=== PATIENT | female | born 1995 | race Caucasian/White ===

== ENCOUNTER 2019-04-27 16:32 | Inpatient (IN) ==
[2019-04-27] MEDS ORDERED: OXYTOCIN 30 UNITS/500 ML BAG IV PRN ×2 (20:13→20:15)
[2019-04-27 20:34] LABS: Hematocrit (blood only) 40.1 % (37-47); Hemoglobin 13.9 g/dL (12.0-16.0); Mean Corpuscular Volume 87.4 fL (80-100); Mean Platelet Volume 9.6 fL (7.4-10.4); Platelet Count 153 K/uL (130-400); RDW Standard Deviation 41.3 fL (36.4-46.3); Red Blood Count 4.59 M/uL (4.2-5.4); White Blood Count 9.92 K/uL (4.8-10.8)
[2019-04-27 20:46] LABS: Mean Corpuscular Hgb Conc 34.7 g/dL (32-36)
[2019-04-27 20:52] LABS: Alanine Aminotransferase 14 U/L (12-78); Aspartate Aminotransferase 15 U/L (15-37); BUN Creatinine Ratio 12.7 (10-20); Blood Urea Nitrogen 6 mg/dl (7-18); Calcium 9.3 mg/dl (8.5-10.1); Carbon Dioxide 20 mmol/L (21-32); Chloride 109 mmol/L (98-107); Creatinine Clr Calc Pharmacy 195.2 ml/min; Est GFR (African American) > 150.0; Est GFR (Non-African American) 133.6; Glucose 67 mg/dl (70-99); Potassium 3.9 mmol/L (3.5-5.1); Sodium 140 mmol/L (136-145)
[2019-04-27 20:54] LABS: Albumin Globulin Ratio 0.8 (0.9-2); Alkaline Phosphatase 347 U/L (45-117); Bilirubin,Total 0.6 mg/dl (0.2-1); Globulin 3.6 gm/dl (2.5-4.0); Total Protein 6.6 gm/dl (6.4-8.2)
[2019-04-27] MEDS ORDERED: CALCIUM CARBONATE 500 MG CHEWABLE TAB PO PRN (21:12)
--- NOTE | 2019-04-27 22:50 | History & Physical Report ---
Date of Service April 27, 2019 Assessment & Plan (1) 40 weeks gestation of : 24yo @ 40 3 here for IOL. Due to elevated BPs, preeclampsia labs ordered. Patient had elevated protein/creatinine ratio earlier this week; also had urinary tract infection, has been treated with macrobid. Will plan to continue the macrobid during hospital stay. Pagan balloon was inserted without difficulty, inflated to 30ml. Patient's has stated multiple times that he feels that her blood pressure is elevated because she is sitting in L&D bed, and that if she just sits in a chair, then her BP will go down. He insists that she get out of the L&D bed and sit in a chair so her blood pressure will go down. After she does this, her BPs have remained similar to when she was sitting upright in L&D bed. Recommend, because of elevated blood pressures, that patient stay tonight and start induction now. She is willing to spend the night, however during this discussion about staying for induction, patient's interrupted multiple times to state that Vamsi would not be receiving pitocin tonight. I attempted to discuss with patient 3 options for induction: start with pagan alone, vs pagan with low dose pitocin vs pagan with gradually increasing pitocin. Patient's Karlosneil interrupted this conversation, stating that she will not recieve that for induction, and if I recommend this, they will leave and go to another hospital. He does not allow Vamsi to answer questions on her own, and loudly speaks over her and myself during our discussion about the induction process. Because of this disruption causing an inability for Vamsi and me to discuss her induction, I asked him to step out of the room twice. He became increasingly angry, stating "I will not leave. I am the and the father of the baby. I will be part of this and you will not give her pitocin." He stated he has a medical background and understands the induction process, and that Vamsi does not understand this and does not know what is going on. I acknowledged that this process is likely very nervewracking for this family on their first , and that this is probably why Shabbir is very anxious. He and Vamsi agreed with this. Shabbir states that he knows about induction of labor and that if the induction is prolonged, it could cause problems with Vamsi's heart. Therefore, he does not want her to start pitocin tonight. He feels that the less pitocin given during the induction process, the better. I explained that using pitocin in combination with pagan balloon would likely decrease the overall induction of labor time, given that it would likely improve the efficacy of the cervical ripening process. He continued to talk over my attempt at explanation and that he will not allow Vamsi to use pitocin overnight. He stated "I have had problems with you doctors before, and will have to call my mom to come up here to deal with this." He then made a phone call from the room, presumably to his mother, to explain that the doctors wanted to give Vamsi pitocin and start her induction when he did not feel this was appropriate. I recommended to Vamsi that she eat dinner while she considers her options for induction and left the room. Shortly thereafter, I was called back to the room. Shabbir apologized to me for his behavior earlier, stating again that Vamsi does not understand what is going to be happening to her during induction, but that he is trying to protect her from a bad experience because this is only her first baby. He states he is worried that if she has a bad experience, she might not want to have more children. I thanked him for his acknowledgement, and reiterated that I understand that this is a difficult process for families - induction of labor, being told that the BPs are elevated and therefore recommending that she stay overnight rather than discharging home after placement of the cervical pagan. Vamsi stated that she would be willing to continue the pagan balloon overnight, and whenever the balloon falls out she would be willing to start pitocin at that time. I think this is a reasonable compromise, and discussed intermittent monitoring. Whenever the pagan balloon falls out, she is to let us know, and we will start pitocin at that time. Given my interactions with Shabbir this evening, I am concerned about his controlling behavior and the potential for abuse. Vamsi has stated to nursing s taff when alone that she feels safe in her environment. I am unable to question her during this interaction because Shabbir refuses to leave the bedside. Will strongly recommend social worker delinquency prevention consultation after delivery to evaluate for safety in the home for both baby and mother. History of Present Illness Chief Complaint: IOL Primary Care Provider: Yuniel Celaya 24yo @ 40 01/06 presents for IOL. complicated by Rh negative, elev ated blood pressures. Also has UTI - has been treated with macrobid. Patient has history of leukemia (2007). Allergies Allergy/AdvReac Type Severity Reaction Status Date / Time No Known Allergies Allergy Verified 04/25/19 03:45 Home Medications Home Medications Medication Instructions Recorded Confirmed Type vit-iron fum-folic ac 1 tab PO DAILY 04/27/19 04/27/19 History [ Vitamin] ranitidine HCl 150 mg PO DAILY 04/27/19 04/27/19 History Patient History Medical History UTI (urinary tract infection) [place] teeth extracted 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 Pancreatitis D/t chemotherapy Social History Preferred Language: Azeri Communication Ability: Effective Search Engine Optimizer Required: No Beliefs That Will Affect Care: None marital status: Current Living Situation: Spouse Current Living Situation Comment: house Other Information That Helps Us Care for You: No Feels Safe at Home: Yes Safety Concerns: Feels Safe At This Time Smoking Status: Never smoker Hx Alcohol Use: No Hx Substance Use: No Review of Systems All systems reviewed & are unremarkable except as noted in HPI & below Physical Exam Physical Exam: Gen: AAOx3 NAD CV: RRR L: CTAB Abd: soft, gravid, NTTP. EFW 7-8 Ext: no edema SVE: / FHT: Cat 1, reactive NST [place]: no ctx Results & Data Vital Signs (Past 12 Hours) Vital Signs Temp Pulse Resp BP 04/27/19 20:29 36.5 C 88 18 147/89 H 04/27/19 19:37 99 H 164/99 H 04/27/19 18:10 85 18 149/97 H 04/27/19 17:55 94 H 152/96 H 04/27/19 17:40 90 135/99 04/27/19 17:25 98 H 129/94 04/27/19 17:10 96 H 133/91 04/27/19 16:56 99 H 138/96 04/27/19 16:55 97 H 141/96 H 04/27/19 16:45 37.0 C 93 H 18 141/97 H 04/27/19 16:39 93 H 141/97 H
[2019-04-27] MEDS: NITROFURANTOIN MONOHYDRATE 100 MG CAP PO SCH (23:36)
[2019-04-28] MEDS: LACTATED RINGER'S 1,000 ML IV PRN ×5 (02:20→20:52)
[2019-04-28] MEDS ORDERED: BUPIVACAINE 0.25% 30 ML VIAL ONE (02:24)
[2019-04-28] MEDS ORDERED: ePHEDrine sulfate 50 MG/ML AMP ONE (02:25)
[2019-04-28] MEDS ORDERED: fentaNYL citrate 100 MCG/2 ML VIAL ONE (02:25)
[2019-04-28] MEDS ORDERED: fentaNYL 2MCG/ML ROPIV 1.25MG/ML 100 ML BAG EPI ONE (02:26)
--- NOTE | 2019-04-28 05:23 | Anesthesiology Consultation ---
Date of Service April 28, 2019 Assessment & Plan Chart Review Chart Review: Acceptable Risk for Labor Epidural Consults Requested none History Height/Weight Height: 5 ft 7 in Weight: 88.904 kg Allergies Allergy/AdvReac Type Severity Reaction Status Date / Time No Known Allergies Allergy Verified 04/25/19 03:45 Medications Home Medications Medication Instructions Recorded Confirmed Last Taken vit-iron fum-folic ac 1 tab PO DAILY 04/27/19 04/27/19 04/26/19 [ Vitamin] ranitidine HCl 150 mg PO DAILY 04/27/19 04/27/19 04/26/19 Active Medications Generic Name Dose Route Start Last Admin Trade Name Freq PRN Reason Stop Dose Admin Lactated Ringer's 1,000 mls @ 125 mls/hr 04/27/19 20:13 04/28/19 03:21 Lr IV 04/29/19 20:12 125 mls/hr .Q8H PRN Administration L&D Protocol Protocol Oxytocin 30 units in 500 mls @ 1 mls/hr 04/27/19 20:15 04/28/19 03:20 Pitocin IV 04/29/19 20:14 0.06 units/hr .Q24H PRN 1 mls/hr Labor Induction/Augmentation Administration Protocol 0.06 UNITS/HR Nitrofurantoin Macrocrystals 1 mg 04/27/19 23:30 04/27/19 23:36 Macrobid PO 05/27/19 23:29 1 mg BID ANDREW Administration Past Medical History Medical History UTI (urinary tract infection) [place] teeth extracted 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 Pancreatitis D/t chemotherapy Social History Smoking Status: Never smoker Hx Alcohol Use: No Hx Substance Use: No Physical Exam Vital Signs Last Vital Signs Temp 36.5 C 04/28/19 04:47 Pulse 96 H 04/28/19 05:22 Resp 20 04/28/19 04:47 BP 132/82 04/28/19 05:22 Pulse Ox 99 04/28/19 05:19 Testing Laboratory Results 04/27/19 20:20 04/27/19 20:20
[2019-04-28] MEDS ORDERED: ePHEDrine sulfate 50 MG/ML AMP IV PRN ×2 (05:26→21:59)
[2019-04-28] MEDS ORDERED: DiphenhydrAMINE HCL 50 MG/ML VIAL IV PRN ×3 (05:26→21:59)
[2019-04-28] MEDS ORDERED: NALOXONE HCL 1 MG in SODIUM CHLORIDE 0.9% 1000ML 1,000 ML IV PRN ×2 (05:26→21:59)
[2019-04-28] MEDS ORDERED: NALBUPHINE HCL INJ 10 MG/ML AMP IV PRN ×2 (05:26→21:59)
[2019-04-28] MEDS ORDERED: NALOXONE HCL 0.4 MG/1 ML VIAL/CARP IV PRN ×2 (05:26→21:59)
--- NOTE | 2019-04-28 08:54 | Obstetrical Progress Note ---
Date of Service April 28, 2019 Subjective Mai balloon fell out at about 2am. Patient took a shower, then pitocin started. Pit is now at 9. FHT Cat 1 [place] Q 2-4 SVE 5/80/-2 SROM clear fluid during my exam. Discussed with Chika Coronel RN (in front of patient and FOB) during visit to patient's room that we will monitor how contractions respond now that ROM has occurred. Will increase pitocin as appropriate. Results & Data Vital Signs (Past 12 Hours) Vital Signs Temp Pulse Resp BP Pulse Ox 04/28/19 08:44 99 H 98 04/28/19 08:41 93 H 105/64 04/28/19 08:39 93 H 97 04/28/19 08:34 96 H 97 04/28/19 08:30 20 04/28/19 08:29 98 H 97 04/28/19 08:26 96 H 111/73 04/28/19 08:24 97 H 98 04/28/19 08:19 95 H 98 04/28/19 08:14 114 H 100 04/28/19 08:11 107 H 119/81 04/28/19 08:09 100 H 98 04/28/19 08:04 99 H 98 04/28/19 08:00 20 04/28/19 07:59 105 H 99 04/28/19 07:56 100 H 113/71 04/28/19 07:54 97 H 99 04/28/19 07:49 102 H 98 04/28/19 07:44 98 H 98 04/28/19 07:42 100 H 119/75 04/28/19 07:39 102 H 99 04/28/19 07:34 99 H 99 04/28/19 07:30 18 04/28/19 07:29 93 H 99 04/28/19 07:26 90 128/77 04/28/19 07:24 90 98 04/28/19 07:19 90 98 04/28/19 07:14 94 H 99 04/28/19 07:11 89 136/89 04/28/19 07:10 36.9 C 20 04/28/19 07:09 92 H 99 04/28/19 07:04 90 100 04/28/19 06:59 87 99 04/28/19 06:56 97 H 138/94 04/28/19 06:54 89 99 04/28/19 06:49 93 H 99 04/28/19 06:44 91 H 98 04/28/19 06:39 92 H 100 04/28/19 06:34 85 139/94 99 04/28/19 06:29 106 H 98 04/28/19 06:24 108 H 115/66 98 04/28/19 06:19 100 H 98 04/28/19 06:14 99 H 122/70 99 04/28/19 06:09 98 H 98 04/28/19 06:04 106 H 114/68 98 04/28/19 05:59 102 H 100 04/28/19 05:54 102 H 118/72 99 04/28/19 05:49 98 H 98 04/28/19 05:44 96 H 99 04/28/19 05:43 108 H 130/73 04/28/19 05:39 98 H 100 04/28/19 05:35 100 H 127/73 04/28/19 05:34 103 H 100 04/28/19 05:29 95 H 99 04/28/19 05:24 94 H 99 04/28/19 05:22 96 H 132/82 04/28/19 05:20 90 137/81 04/28/19 05:19 94 H 99 04/28/19 05:18 92 H 140/84 04/28/19 05:16 95 H 135/80 04/28/19 05:14 96 H 140/90 99 04/28/19 05:12 97 H 143/90 H 04/28/19 05:10 88 144/88 H 04/28/19 05:09 92 H 99 04/28/19 05:08 99 H 143/89 H 04/28/19 05:06 88 147/97 H 04/28/19 05:04 94 H 170/110 H 99 04/28/19 05:01 92 H 155/105 H 04/28/19 04:59 91 H 99 04/28/19 04:54 111 H 100 04/28/19 04:49 108 H 100 04/28/19 04:47 36.5 C 86 20 159/103 H 04/28/19 04:40 97 H 99 04/28/19 04:35 94 H 98 04/28/19 04:30 99 H 99 04/28/19 04:25 98 H 99 04/28/19 04:20 99 H 99 04/28/19 04:15 91 H 99 04/28/19 04:10 99 H 99 04/28/19 04:05 95 H 99 04/28/19 04:00 97 H 99 04/28/19 03:55 95 H 99 04/28/19 03:50 92 H 99 04/28/19 03:45 91 H 98 04/28/19 03:40 98 H 99 04/28/19 03:35 101 H 99 04/28/19 03:30 94 H 99 04/28/19 03:25 102 H 99 04/28/19 03:24 95 H 151/99 H 04/28/19 03:20 105 H 100 04/28/19 03:15 101 H 99 04/28/19 03:10 101 H 100 04/28/19 03:05 106 H 99 04/28/19 03:00 105 H 100 04/28/19 02:55 96 H 100 04/28/19 01:45 95 H 136/93 04/27/19 23:28 36.5 C 96 H 18 136/92
[2019-04-28] MEDS: NITROFURANTOIN MONOHYDRATE 100 MG CAP PO SCH ×2 (09:10→23:25)
[2019-04-28] MEDS ORDERED: ONDANSETRON INJ 2 MG/ML 2 ML VIAL IV STA (11:47)
[2019-04-28] MEDS: fentaNYL 2MCG/ML ROPIV 1.25MG/ML 100 ML BAG EPI PRN ×2 (13:27→20:33)
[2019-04-28] MEDS ORDERED: CITRIC ACID/SODIUM CITRATE 15 ML UDC ONE (20:44)
[2019-04-28] MEDS ORDERED: LACTATED RINGER'S 1,000 ML IV SCH ×3 (20:45→23:00)
[2019-04-28] MEDS ORDERED: CEFAZOLIN 2000MG 2,000 MG/15 ML SYR IV SCH (21:00)
[2019-04-28] MEDS ORDERED: CITRIC ACID/SODIUM CITRATE 15 ML UDC PO SCH (21:00)
[2019-04-28] MEDS ORDERED: MoRPHine SULFATE PF 1 MG/ML 10 ML AMP/VIAL EPI ONE (21:21)
[2019-04-28] MEDS ORDERED: fentaNYL citrate 100 MCG/2 ML VIAL IV ONE (21:34)
[2019-04-28] MEDS ORDERED: LACTATED RINGER'S 500 ML IV PRN (21:59)
[2019-04-28] MEDS ORDERED: MoRPHine SULFATE 2 MG/ML CARP IV PRN (21:59)
[2019-04-28] MEDS ORDERED: ONDANSETRON INJ 2 MG/ML 2 ML VIAL IV PRN (21:59)
[2019-04-28] MEDS ORDERED: MEPERIDINE HCL 25 MG/ML CARP IV PRN (21:59)
[2019-04-28] MEDS ORDERED: NALOXONE HCL 0.08 MG in SYRINGE 1.8 ML IV PRN (21:59)
[2019-04-28] MEDS ORDERED: KETOROLAC 30 MG/ML VIAL IV PRN (21:59)
[2019-04-28] MEDS ORDERED: HYDROmorphone INJ 0.5 MG/0.5 ML SYR IV PRN (21:59)
[2019-04-28] MEDS ORDERED: PROMETHAZINE HCL 6.25 MG in SODIUM CHLORIDE 0.9% 50 ML IV PRN (21:59)
[2019-04-28] MEDS ORDERED: MoRPHine SULFATE PF 1 MG/ML 10 ML AMP/VIAL INT SPINAL ONE (21:59)
[2019-04-28] MEDS ORDERED: SODIUM CHLORIDE 0.9% 1000ML 1,000 ML IV SCH (22:00)
[2019-04-28] MEDS ORDERED: NO NARCOTICS OR SEDATIVES SCH (22:00)
[2019-04-28] MEDS ORDERED: KETOROLAC 30 MG/ML VIAL IV ONE (22:02)
[2019-04-28] MEDS ORDERED: OXYTOCIN 10 UNITS/ML VIAL IV ONE (22:02)
[2019-04-28] MEDS ORDERED: LIDOCAINE/EPINEPHRINE 2% 1:200,000 20 ML SDV INFIL ONE (22:32)
--- NOTE | 2019-04-28 22:33 | Post Operative Brief Note ---
Immediate Post Op Note v1 Date of Surgery April 28, 2019 Pre & Post Diagnosis Operation Date: 04/28/19 20:30 Pre-Op Diagnosis: Failure to descend Post-Op Diagnosis: Failure to descend Procedure Operation Date: 04/28/19 20:30 Actual Procedures p Section in LD - Padmini Burger MD, FACOG Surgeon Padmini Burger MD, FACOG Ribbon Tier Tereza Hernandez RN Estimated Blood Loss 600 Findings Consistent with Post-Op Diagnosis Drains Mai Catheter
[2019-04-28] MEDS ORDERED: SENNA 8.6 MG TAB PO PRN (22:52)
[2019-04-28] MEDS ORDERED: BENZOCAINE 20% AER SPR 82.5 GM CAN EXT PRN (22:52)
[2019-04-28] MEDS ORDERED: MAGNESIUM HYDROXIDE SUSP 30 ML UDC PO PRN (22:52)
[2019-04-28] MEDS ORDERED: IBUPROFEN 600 MG TAB PO PRN (22:52)
[2019-04-28] MEDS ORDERED: SUPERCREAM 0.870% 15 GM JAR EXT PRN (22:52)
[2019-04-28] MEDS ORDERED: DIPHTHERIA/TETANUS/PERTUSSIS 0.5 ML SYR/VIAL IM ONE (22:52)
[2019-04-28] MEDS ORDERED: HYDROCORTISONE ACETATE 25 MG SUPP PR PRN (22:52)
--- NOTE | 2019-04-28 22:57 | Anesthesiology Progress Note ---
Date of Service April 28, 2019 Anesthesia Post Procedure Vital Signs Vital Signs: Temp Pulse Resp BP Pulse Ox 04/28/19 22:55 101 H 100 04/28/19 22:50 103 H 97/60 L 100 04/28/19 22:41 122 H 99/54 L 04/28/19 22:40 37.1 C 16 04/28/19 21:19 113 H 97 04/28/19 21:14 111 H 97 04/28/19 21:11 109 H 133/79 04/28/19 21:09 112 H 98 04/28/19 21:04 110 H 96 04/28/19 20:59 114 H 98 04/28/19 20:56 129 H 142/85 H 04/28/19 20:54 112 H 98 04/28/19 20:49 115 H 96 04/28/19 20:44 123 H 97 04/28/19 20:41 130 H 131/65 04/28/19 20:39 126 H 95 04/28/19 20:34 139 H 88 L 04/28/19 20:33 139 H 87 L 04/28/19 20:29 142 H 97 04/28/19 20:27 144 H 88 L 04/28/19 20:24 130 H 98 04/28/19 20:22 115 H 87 L 04/28/19 20:19 138 H 98 04/28/19 20:14 174 H 98 04/28/19 20:09 124 H 96 04/28/19 20:04 128 H 98 04/28/19 19:59 122 H 98 04/28/19 19:58 144 H 139/91 04/28/19 19:54 115 H 98 04/28/19 19:49 117 H 95 04/28/19 19:47 37.4 C 22 04/28/19 19:44 113 H 98 04/28/19 19:39 129 H 98 04/28/19 19:34 126 H 98 04/28/19 19:33 126 H 94 04/28/19 19:29 104 H 97 04/28/19 19:26 126 H 130/75 90 04/28/19 19:24 103 H 97 04/28/19 19:19 117 H 95 04/28/19 19:14 112 H 96 04/28/19 19:10 104 H 94 04/28/19 19:09 112 H 95 04/28/19 19:04 108 H 97 04/28/19 18:59 130 H 96 04/28/19 18:56 126 H 126/69 04/28/19 18:54 143 H 99 04/28/19 18:49 109 H 95 04/28/19 18:44 113 H 96 04/28/19 18:41 108 H 134/78 04/28/19 18:39 114 H 96 04/28/19 18:34 115 H 96 04/28/19 18:29 147 H 97 04/28/19 18:27 115 H 139/71 04/28/19 18:24 118 H 95 04/28/19 18:19 119 H 96 04/28/19 18:14 111 H 96 04/28/19 18:09 145 H 94 04/28/19 18:04 118 H 95 04/28/19 18:03 120 H 91 04/28/19 17:59 117 H 96 04/28/19 17:57 37.6 C H 22 04/28/19 17:56 123 H 127/75 04/28/19 17:54 124 H 96 04/28/19 17:49 109 H 97 04/28/19 17:44 124 H 98 04/28/19 17:41 122 H 126/62 04/28/19 17:39 116 H 80 L 04/28/19 17:34 144 H 75 L 04/28/19 17:29 117 H 97 04/28/19 17:26 115 H 130/68 04/28/19 17:24 119 H 98 04/28/19 17:23 118 H 91 04/28/19 17:19 112 H 95 04/28/19 17:18 133 H 93 04/28/19 17:14 112 H 98 04/28/19 17:12 125 H 132/62 04/28/19 17:09 123 H 99 04/28/19 17:04 125 H 97 04/28/19 16:59 126 H 24 97 04/28/19 16:56 122 H 122/68 04/28/19 16:54 122 H 99 04/28/19 16:49 126 H 99 04/28/19 16:44 123 H 97 04/28/19 16:41 120 H 121/73 04/28/19 16:39 124 H 100 06/27/19 16:34 117 H 100 04/28/19 16:29 122 H 100 04/28/19 16:26 118 H 120/58 L 04/28/19 16:24 117 H 100 04/28/19 16:19 118 H 100 04/28/19 16:17 36.6 C 20 04/28/19 16:14 117 H 100 04/28/19 16:09 118 H 100 04/28/19 16:04 109 H 98 04/28/19 15:59 135 H 100 04/28/19 15:56 128 H 130/67 86 L 04/28/19 15:54 126 H 99 04/28/19 15:49 105 H 100 04/28/19 15:44 119 H 99 04/28/19 15:41 141 H 143/63 H 04/28/19 15:39 122 H 80 L 04/28/19 15:38 108 H 88 L 04/28/19 15:34 111 H 89 L 04/28/19 15:29 116 H 97 04/28/19 15:26 113 H 135/88 04/28/19 15:25 106 H 86 L 04/28/19 15:24 107 H 99 04/28/19 15:19 110 H 100 04/28/19 15:14 104 H 99 04/28/19 15:11 104 H 137/93 88 L 04/28/19 15:09 102 H 99 04/28/19 15:04 103 H 100 04/28/19 14:59 102 H 100 04/28/19 14:58 36.9 C 04/28/19 14:57 104 H 145/94 H 04/28/19 14:54 110 H 99 04/28/19 14:49 106 H 100 04/28/19 14:44 104 H 99 04/28/19 14:42 117 H 159/97 H 04/28/19 14:39 102 H 100 04/28/19 14:34 104 H 99 04/28/19 14:30 04/28/19 14:29 108 H 100 04/28/19 14:26 108 H 148/86 H 04/28/19 14:24 107 H 100 04/28/19 14:19 105 H 100 04/28/19 14:14 111 H 99 04/28/19 14:11 94 H 121/75 04/28/19 14:09 93 H 99 04/28/19 14:04 91 H 98 04/28/19 14:00 20 04/28/19 13:59 94 H 98 04/28/19 13:56 89 110/74 04/28/19 13:54 90 98 04/28/19 13:49 91 H 99 04/28/19 13:44 95 H 99 04/28/19 13:41 90 119/73 04/28/19 13:39 100 H 99 04/28/19 13:34 95 H 99 04/28/19 13:30 18 04/28/19 13:29 94 H 99 04/28/19 13:26 97 H 129/74 04/28/19 13:24 98 H 99 04/28/19 13:19 93 H 98 04/28/19 13:14 91 H 98 04/28/19 13:11 96 H 138/88 04/28/19 13:09 110 H 100 04/28/19 13:04 106 H 99 04/28/19 13:00 37.5 C 20 04/28/19 12:59 102 H 97 04/28/19 12:56 100 H 120/62 04/28/19 12:54 102 H 97 04/28/19 12:49 102 H 97 04/28/19 12:44 103 H 96 04/28/19 12:41 98 H 108/57 L 04/28/19 12:39 98 H 97 04/28/19 12:34 100 H 97 04/28/19 12:31 18 04/28/19 12:29 107 H 98 04/28/19 12:27 98 H 108/64 04/28/19 12:24 97 H 97 04/28/19 12:19 102 H 97 04/28/19 12:14 102 H 98 04/28/19 12:12 102 H 120/74 04/28/19 12:09 106 H 99 04/28/19 12:04 108 H 100 04/28/19 12:00 04/28/19 11:59 105 H 100 04/28/19 11:57 107 H 119/75 04/28/19 11:54 108 H 99 04/28/19 11:49 112 H 100 04/28/19 11:44 116 H 98 04/28/19 11:41 108 H 133/82 04/28/19 11:39 107 H 99 04/28/19 11:34 96 H 98 04/28/19 11:30 18 04/28/19 11:29 100 H 99 04/28/19 11:27 96 H 134/83 04/28/19 11:24 98 H 98 04/28/19 11:19 98 H 98 04/28/19 11:14 103 H 99 04/28/19 11:12 103 H 134/89 04/28/19 11:09 102 H 99 04/28/19 11:04 98 H 99 04/28/19 11:00 37.5 C 20 04/28/19 10:59 107 H 99 04/28/19 10:56 104 H 136/80 04/28/19 10:54 98 H 99 04/28/19 10:49 99 H 98 04/28/19 10:44 93 H 96 04/28/19 10:42 90 122/69 04/28/19 10:39 94 H 98 04/28/19 10:34 98 H 98 04/28/19 10:30 20 04/28/19 10:29 98 H 97 04/28/19 10:26 90 119/67 04/28/19 10:24 99 H 97 04/28/19 10:19 92 H 98 04/28/19 10:14 96 H 96 04/28/19 10:12 87 126/64 04/28/19 10:09 93 H 97 04/28/19 10:04 94 H 96 04/28/19 10:00 20 04/28/19 09:59 90 97 04/28/19 09:56 90 126/70 04/28/19 09:54 92 H 97 04/28/19 09:49 93 H 97 04/28/19 09:44 96 H 98 04/28/19 09:41 97 H 131/82 04/28/19 09:39 95 H 98 04/28/19 09:34 94 H 98 04/28/19 09:30 18 04/28/19 09:29 93 H 98 04/28/19 09:26 92 H 127/83 04/28/19 09:24 93 H 98 04/28/19 09:19 89 98 04/28/19 09:14 94 H 98 04/28/19 09:12 98 H 139/86 04/28/19 09:09 104 H 100 04/28/19 09:04 107 H 98 04/28/19 09:00 37.1 C 20 04/28/19 08:59 100 H 98 04/28/19 08:56 96 H 111/66 04/28/19 08:54 97 H 97 04/28/19 08:49 99 H 97 04/28/19 08:44 99 H 98 04/28/19 08:41 93 H 105/64 04/28/19 08:39 93 H 97 04/28/19 08:34 96 H 97 04/28/19 08:30 20 04/28/19 08:29 98 H 97 04/28/19 08:26 96 H 111/73 04/28/19 08:24 97 H 98 04/28/19 08:19 95 H 98 04/28/19 08:14 114 H 100 04/28/19 08:11 107 H 119/81 04/28/19 08:09 100 H 98 04/28/19 08:04 99 H 98 04/28/19 08:00 20 04/28/19 07:59 105 H 99 04/28/19 07:56 100 H 113/71 04/28/19 07:54 97 H 99 04/28/19 07:49 102 H 98 04/28/19 07:44 98 H 98 04/28/19 07:42 100 H 119/75 04/28/19 07:39 102 H 99 04/28/19 07:34 99 H 99 04/28/19 07:30 18 04/28/19 07:29 93 H 99 04/28/19 07:26 90 128/77 04/28/19 07:24 90 98 04/28/19 07:19 90 98 04/28/19 07:14 94 H 99 04/28/19 07:11 89 136/89 04/28/19 07:10 36.9 C 20 04/28/19 07:09 92 H 99 04/28/19 07:04 90 100 04/28/19 06:59 87 99 04/28/19 06:56 97 H 138/94 04/28/19 06:54 89 99 04/28/19 06:49 93 H 99 04/28/19 06:44 91 H 98 04/28/19 06:39 92 H 100 04/28/19 06:34 85 139/94 99 04/28/19 06:29 106 H 98 04/28/19 06:24 108 H 115/66 98 04/28/19 06:19 100 H 98 04/28/19 06:14 99 H 122/70 99 04/28/19 06:09 98 H 98 04/28/19 06:04 106 H 114/68 98 04/28/19 05:59 102 H 100 04/28/19 05:54 102 H 118/72 99 04/28/19 05:49 98 H 98 04/28/19 05:44 96 H 99 04/28/19 05:43 108 H 130/73 04/28/19 05:39 98 H 100 04/28/19 05:35 100 H 127/73 04/28/19 05:34 103 H 100 04/28/19 05:29 95 H 99 04/28/19 05:24 94 H 99 04/28/19 05:22 96 H 132/82 04/28/19 05:20 90 137/81 04/28/19 05:19 94 H 99 04/28/19 05:18 92 H 140/84 04/28/19 05:16 95 H 135/80 04/28/19 05:14 96 H 140/90 99 04/28/19 05:12 97 H 143/90 H 04/28/19 05:10 88 144/88 H 04/28/19 05:09 92 H 99 04/28/19 05:08 99 H 143/89 H 04/28/19 05:06 88 147/97 H 04/28/19 05:04 94 H 170/110 H 99 04/28/19 05:01 92 H 155/105 H 04/28/19 04:59 91 H 99 04/28/19 04:54 111 H 100 04/28/19 04:49 108 H 100 04/28/19 04:47 36.5 C 86 20 159/103 H 04/28/19 04:40 97 H 99 04/28/19 04:35 94 H 98 04/28/19 04:30 99 H 99 04/28/19 04:25 98 H 99 04/28/19 04:20 99 H 99 06/27/19 04:15 91 H 99 04/28/19 04:10 99 H 99 04/28/19 04:05 95 H 99 04/28/19 04:00 97 H 99 04/28/19 03:55 95 H 99 04/28/19 03:50 92 H 99 04/28/19 03:45 91 H 98 04/28/19 03:40 98 H 99 04/28/19 03:35 101 H 99 04/28/19 03:30 94 H 99 04/28/19 03:25 102 H 99 04/28/19 03:24 95 H 151/99 H 04/28/19 03:20 105 H 100 04/28/19 03:15 101 H 99 04/28/19 03:10 101 H 100 04/28/19 03:05 106 H 99 04/28/19 03:00 105 H 100 04/28/19 02:55 96 H 100 04/28/19 01:45 95 H 136/93 04/27/19 23:28 36.5 C 96 H 18 136/92 Transfer of Care Handoff Completed per policy Notes Mental Status: alert / awake / arousable Patient Amnestic to Procedure: Yes Nausea / Vomiting: adequately controlled Pain: adequately controlled Airway Patency, RR, SpO2: stable & adequate BP & HR: stable & adequate Hydration State: stable & adequate Neuraxial Anesthesia: was administered and sensory block is resolving Anesthetic Complications: no major complications apparent and Pt Satisfied with anesthetic care
[2019-04-28] MEDS: OXYTOCIN 20 UNITS in LACTATED RINGER'S 1,000 ML IV SCH (23:29)
--- NOTE | 2019-04-29 01:38 | Operative Report ---
DATE OF OPERATION: 04/28/2019 SURGEON: Padmini Ram MD DOCK LOADER: Tereza Hernandez RN. PREOPERATIVE DIAGNOSES: Intrauterine at 40 and 3/7 weeks with gestational hypertension/mild preeclampsia, failed induction of labor and arrest of descent. POSTOPERATIVE DIAGNOSES: Intrauterine at 40 and 3/7 weeks with gestational hypertension/mild preeclampsia, failed induction of labor and arrest of descent plus delivery of a viable male infant, 9 pounds 8 ounces, direct occiput posterior presentation. PROCEDURE: Primary low transverse section. ANESTHESIA: Epidural. BLOOD LOSS: 600 mL HISTORY: The patient is a 24-year-old G1, P0 white female who presented for induction because of elevated pressures and post-dates. She received a cervical balloon and then Pitocin on the evening of 04/27/2019. By the morning, her cervix was 4 cm dilated. Membranes ruptured spontaneously for clear fluid. An IUPC was placed after forebag of fluid was also ruptured. Pitocin was continued. She progressed to full dilation and despite pushing effectively for over 4 hours, the presenting part did not descend past +2 station. There was significant molding present and because of maternal exhaustion and failure to descend felt prudent to proceed with a low transverse section after much discussion with her and the patient they are agreeable to this plan. GROSS FINDINGS: Uterus is gravid and consistent with a term in size. Bilateral ovaries and fallopian tubes are grossly normal. The infant was in a direct occiput posterior presentation. PROCEDURE: After the patient was prepped and draped in usual sterile fashion, a low transverse skin incision was made with a scalpel and carried to the fascia with the same scalpel. The fascial incision was then extended with James scissors. The edges were grasped with Hakan clamps and underlying rectus muscles bluntly and sharply dissected off the overlying fascia. The underlying peritoneum was elevated and entered sharply. The bladder was then taken down off the anterior surface of the uterus and placed behind the bladder blade. Low uterine segment was entered with the scalpel and extended transversely. The was brought back out of the pelvis to the incision and then with moderate fundal pressure, the infant was delivered. Mouth and nasopharynx were suctioned after delivery. The rest of the delivered with additional fundal pressure. The cord was clamped and cut and the infant was handed off to Dr. Murdock who was in attendance as blow down helper. There was moderate meconium upon entering the uterus. The placenta was then manually extracted and the uterus exteriorized and covered with a clean lap sponge. The uterine cavity was then explored and found to be free of any placental tissue or membranes. There was a small extension of the uterine incision inferiorly on the left. This was repaired along with the rest of the uterine incision in 2 layers in a running locking imbricating fashion with 0 Monocryl. The hemostasis was noted to be excellent on the incision. The posterior cul-de-sac was irrigated with normal saline. The incision was examined once more and continued to have excellent hemostasis. The uterus was placed back inside the abdominal cavity. The gutters were checked for any clot or fluid. The anterior cul-de-sac was then irrigated as well with normal saline. The incision was examined once more and continued to have excellent hemostasis. The rectus muscles were brought together in midline with individual stitches of 0 Monocryl. The fascia was closed in a running fashion with 0 Vicryl. Skin edges were reapproximated using a subcuticular stitch of 4-0 Vicryl after irrigating the adipose layer. Urine was bloody initially during the case, which was expected with manipulation in movement of the head out of the pelvis and into the uterine incision. Urine was clearing at the end of the case. Mother and were doing well in the recovery area. I attest to the content of the Intraoperative Record and any orders documented therein. Any exception s are noted below.
[2019-04-29 06:43] LABS: Basophils # (auto) 0.01 K/uL (0-0.2); Hematocrit (blood only) 31.4 % (37-47); Hemoglobin 10.9 g/dL (12.0-16.0); Immature Granulocytes % (auto) 0.5 %; Lymphocytes # (auto) 1.53 K/uL (1.2-3.4); Lymphocytes % (auto) 7.4 %; Mean Corpuscular Hgb Conc 34.7 g/dL (32-36); Mean Corpuscular Volume 88.7 fL (80-100); Mean Platelet Volume 9.4 fL (7.4-10.4); Monocytes # (auto) 1.56 K/uL (0.11-0.59); Monocytes % (auto) 7.6 %; Neutrophils # (auto) 17.41 K/uL (1.4-6.5); Neutrophils % (auto) 84.5 %; Platelet Count 129 K/uL (130-400); Red Blood Count 3.54 M/uL (4.2-5.4); White Blood Count 20.61 K/uL (4.8-10.8)
--- NOTE | 2019-04-29 07:03 | Obstetrical Progress Note ---
Date of Service <Enmanuel Richards, - Last Filed: 04/29/19 07:03> April 29, 2019 Assessment & Plan <Enmanuel Richards DO - Last Filed: 04/29/19 07:03> (1) Status post section routine follow-up: -vital signs reviewed and WNL -last Hgb 13.9 -Blood type: O-, GBS-, Rubella Nonimmune -pt doing well clinically -encourage ambulation, monitor and control pain with motrin tylenol, advance to regular diet, monitor lochia -cont encourage breast feeding Subjective <Enmanuel Richards DO - Last Filed: 04/29/19 07:03> 24 y/o POD1 found in bed this morning in NAD. Reports no acute overnight events. Pt states that she has no pain other than appropriate soreness. Tolerating PO intake of liquids without N/V. Has not tried ambulating yet. She is breast and bottle feeding without issue. No issues with voiding, no BM yet, pagan in place. No other acute concerns or complaints. Review of Systems All systems reviewed & are unremarkable except as noted in HPI & below Physical Exam <Enmanuel Richards DO - Last Filed: 04/29/19 07:03> Constitutional WD/WN, vitals as above Respiratory normal respiratory effort, lungs clear to auscultation Cardiovascular RRR, no murmur, no edema Gastrointestinal (Abdomen) mild abd tenderness Incision C/D/I, no bandage Skin no rashes, warm and dry Psychiatric A+Ox3, euthymic affect Lymphatic no LE swelling, no calf tenderness Results & Data <Enmanuel Richards, DO - Last Filed: 04/29/19 07:03> Vital Signs (Past 12 Hours) Vital Signs Temp Pulse Pulse Resp BP BP Pulse Ox 04/29/19 06:00 18 99 04/29/19 04:30 36.7 C 82 18 117/72 98 04/29/19 02:30 20 98 04/29/19 02:00 36.7 C 90 18 116/72 98 04/29/19 01:00 36.5 C 89 18 114/70 99 04/29/19 00:43 81 116/63 04/29/19 00:40 36.8 C 81 18 98 04/29/19 00:35 93 H 98 04/29/19 00:30 93 H 97 04/29/19 00:25 87 99 04/29/19 00:20 81 98 04/29/19 00:15 88 99 04/29/19 00:13 80 110/59 L 04/29/19 00:10 86 18 98 04/29/19 00:05 86 98 04/29/19 00:00 83 97 04/28/19 23:55 84 97 04/28/19 23:51 88 93 04/28/19 23:50 89 94 04/28/19 23:45 88 96 04/28/19 23:43 85 104/54 L 04/28/19 23:40 88 18 96 04/28/19 23:36 85 96/62 L 04/28/19 23:35 85 97 04/28/19 23:31 18 04/28/19 23:30 90 96 04/28/19 23:28 96 H 92 04/28/19 23:25 85 99 04/28/19 23:22 83 88 L 04/28/19 23:20 83 18 105/57 L 99 04/28/19 23:15 83 96 04/28/19 23:13 85 18 91 04/28/19 23:10 88 102/59 L 100 04/28/19 23:05 88 99 04/28/19 23:00 91 H 18 97/54 L 98 04/28/19 22:59 97 H 92 04/28/19 22:55 101 H 100 04/28/19 22:50 103 H 18 97/60 L 100 04/28/19 22:41 122 H 99/54 L 04/28/19 22:40 37.1 C 16 04/28/19 21:19 113 H 97 04/28/19 21:14 111 H 97 04/28/19 21:11 109 H 133/79 04/28/19 21:09 112 H 98 04/28/19 21:04 110 H 96 04/28/19 20:59 114 H 98 04/28/19 20:56 129 H 142/85 H 04/28/19 20:54 112 H 98 04/28/19 20:49 115 H 96 04/28/19 20:44 123 H 97 04/28/19 20:41 130 H 131/65 04/28/19 20:39 126 H 95 04/28/19 20:34 139 H 88 L 04/28/19 20:33 139 H 87 L 04/28/19 20:29 142 H 97 04/28/19 20:27 144 H 88 L 04/28/19 20:24 130 H 98 04/28/19 20:22 115 H 87 L 04/28/19 20:19 138 H 98 04/28/19 20:14 174 H 98 04/28/19 20:09 124 H 96 04/28/19 20:04 128 H 98 04/28/19 19:59 122 H 98 04/28/19 19:58 144 H 139/91 04/28/19 19:54 115 H 98 04/28/19 19:49 117 H 95 04/28/19 19:47 37.4 C 22 04/28/19 19:44 113 H 98 04/28/19 19:39 129 H 98 04/28/19 19:34 126 H 98 04/28/19 19:33 126 H 94 04/28/19 19:29 104 H 97 04/28/19 19:26 126 H 130/75 90 04/28/19 19:24 103 H 97 04/28/19 19:19 117 H 95 04/28/19 19:14 112 H 96 04/28/19 19:10 104 H 94 04/28/19 19:09 112 H 95 04/28/19 19:04 108 H 97 Laboratory Results Laboratory Results - last 24 hr 04/27/19 04/29/19 04/29/19 20:20 06:07 06:07 WBC 20.61 H RBC 3.54 L Hgb 10.9 L D Hct 31.4 L MCV 88.7 MCH 30.8 MCHC 34.7 RDW Std Deviation 42.0 RDW Coeff of Roni 13.0 Plt Count 129 L MPV 9.4 Immature Gran % (Auto) 0.5 Neut % (Auto) 84.5 Lymph % (Auto) 7.4 Scott % (Auto) 7.6 Eos % (Auto) 0.0 Baso % (Auto) 0.0 Immature Gran # (Auto) 0.10 H Neut # (Auto) 17.41 H Lymph # (Auto) 1.53 Scott # (Auto) 1.56 H Eos # (Auto) 0.00 Baso # (Auto) 0.01 Blood Type O Negative Pending Antibody Screen POSITIVE A Pending Antibody Identification Anti-D due to RhIg Screen Pending Medications Administered Current Inpatient Medications Benzocaine (Dermoplast Pain Relieving Tillar) 1 appln EXT UD PRN PRN Reason: use on skin as needed Stop: 05/28/19 22:51 Bisacodyl (Dulcolax) 5 mg PO 2000 ANDREW Stop: 04/29/19 20:01 Bisacodyl (Dulcolax) 10 mg ND PRN PRN PRN Reason: Constipation Stop: 05/30/19 22:51 Calcium Carbonate (Tums) 1,500 mg PO Q6H PRN PRN Reason: Indigestion Stop: 05/27/19 21:11 Last Admin: 04/28/19 16:35 Dose: 1,500 mg Documented by: Cocaine HCl (Supercream 0.870%) 1 gm EXT UD PRN PRN Reason: hemmorrhoidal inflammation Stop: 05/12/19 22:51 Diphenhydramine HCl (Benadryl) 25 mg IV Q6H PRN PRN Reason: pruritis Stop: 04/29/19 15:59 Diphenhydramine HCl (Benadryl) 25 mg IV HS PRN PRN Reason: Insomnia Stop: 04/29/19 16:00 Diphenhydramine HCl (Benadryl Capsule) 50 mg PO HS PRN PRN Reason: Insomnia Stop: 04/29/19 16:00 Diphenhydramine HCl (Benadryl Capsule) 25 mg PO QID PRN PRN Reason: Itching Stop: 05/29/19 15:59 Diphenhydramine HCl (Benadryl) 25 mg IV QID PRN PRN Reason: Itching Stop: 05/29/19 15:59 Docusate Sodium (Colace) 100 mg PO DAILY@ [facility] Stop: 05/29/19 07:59 Ephedrine Sulfate (Ephedrine Sulfate) 10 mg IV Q5M PRN PRN Reason: Hypotension Stop: 04/29/19 15:59 Ferrous Sulfate (Feosol) 325 mg PO DAILY@ ANDREW Stop: 05/29/19 07:59 Hydrocortisone (Anusol Hc) 25 mg ND BID PRN PRN Reason: Hemorrhoids Stop: 05/28/19 22:51 Hydromorphone HCl (Dilaudid) 0.5 mg IV Q4H PRN PRN Reason: Breakthrough Surgical Pain Stop: 04/29/19 15:59 Oxytocin (Pitocin) 30 units in 500 mls @ 333.333 mls/hr IV .Q1H30M PRN; Protocol PRN Reason: Bleeding Control Stop: 05/27/19 20:12 Oxytocin (Pitocin) 30 units in 500 mls @ 15 mls/hr IV .Q24H PRN; Protocol PRN Reason: Labor Induction/Augmentation Stop: 04/29/19 20:14 Last Titration: 04/28/19 20:45 Dose: Infused Documented by: Lactated Ringer's (Lr) 500 mls @ 999 mls/hr IV .Q31M PRN PRN Reason: Hypotension Stop: 04/29/19 15:59 Naloxone HCl 1 mg/ Sodium (Chloride) 1,002.5 mls @ 50 mls/hr IV .Q20H3M PRN PRN Reason: itching or nausea Stop: 04/29/19 15:59 Naloxone HCl 0.08 mg/ Syringe 2 mls @ 1 mls/min IV Q30M PRN; Protocol PRN Reason: Urinary Retention Stop: 04/29/19 15:59 Promethazine HCl 6.25 mg/ (Sodium Chloride) 50.25 mls @ 204 mls/hr IV Q6H PRN PRN Reason: Nausea And Vomiting Stop: 04/29/19 16:00 Sodium Chloride (Nss 1000ml) 1,000 mls @ 15 mls/hr IV .Q24H ANDREW Stop: 04/29/19 15:59 Lactated Ringer's (Lr) 1,000 mls @ 125 mls/hr IV .Q8H ANDREW Stop: 05/28/19 22:59 Oxytocin 20 units/ Lactated (Ringer's) 1,002 mls @ 125 mls/hr IV .Q8H1M ANDREW Stop: 04/29/19 15:01 Last Admin: 04/28/19 23:29 Dose: 125 mls/hr Documented by: Promethazine HCl 25 mg/ Sodium (Chloride) 51 mls @ 204 mls/hr IV Q4H PRN PRN Reason: Nausea And Vomiting Stop: 05/29/19 15:59 Ibuprofen (Motrin) 600 mg PO Q4H PRN PRN Reason: Pain Stop: 05/28/19 22:51 Ketorolac Tromethamine (Toradol) 30 mg IV Q6H PRN PRN Reason: Breakthrough Surgical Pain Stop: 04/29/19 15:59 Ketorolac Tromethamine (Toradol) 30 mg IV Q6H PRN PRN Reason: Pain Stop: 05/04/19 15:59 Magnesium Hydroxide (Milk Of Magnesia) 30 ml PO HS PRN PRN Reason: Constipation Stop: 05/28/19 22:51 Meperidine HCl (Demerol) 25 mg IV Q15M PRN PRN Reason: Breakthrough Surgical Pain Stop: 04/29/19 15:59 Meperidine HCl (Demerol) 50 - 75 mg IV Q4H PRN PRN Reason: Pain Stop: 05/13/19 15:59 Miscellaneous (No Narcotics Or Sedatives) 1 ea N/A UD ANDREW Stop: 04/29/19 15:59 Miscellaneous Information (Dc Intraspinal Morphine) 1 ea N/A UD ANDREW Stop: 04/29/19 16:00 Morphine Sulfate (Morphine Sulfate) 4 mg IV Q2H PRN PRN Reason: Breakthrough Surgical Pain Stop: 04/29/19 15:59 Nalbuphine HCl (Nubain) 5 mg IV Q10M PRN PRN Reason: itching or nausea Stop: 04/29/19 15:59 Naloxone HCl (Narcan) 0.1 mg IV UD PRN PRN Reason: Respiratory Depression Stop: 04/29/19 15:59 Nitrofurantoin Macrocrystals (Macrobid) 1 mg PO BID ANDREW Stop: 05/27/19 23:29 Last Admin: 04/28/19 23:25 Dose: 1 mg Documented by: Ondansetron HCl (Zofran) 4 mg IV Q6H PRN PRN Reason: Nausea And Vomiting Stop: 04/29/19 15:59 Ondansetron HCl (Zofran) 4 mg IV Q4H PRN PRN Reason: Nausea And Vomiting Stop: 05/29/19 15:59 Oxycodone/Acetaminophen (Percocet 5mg/325mg) 1 - 2 tab PO Q4H PRN PRN Reason: Pain Stop: 05/13/19 15:59 Prenat Multivit/Citrus Picker/Iron/Folic Ac ( Vitamin) 1 tab PO DAILY@08 ANDREW Stop: 05/29/19 07:59 Ranitidine HCl (Zantac) 150 mg PO Q12H PRN PRN Reason: Heartburn Stop: 05/27/19 21:11 Last Admin: 04/29/19 01:06 Dose: 150 mg Documented by: Sennosides (Senokot) 17.2 mg PO HS PRN PRN Reason: Constipation Stop: 05/28/19 22:51 Simethicone (Mylicon) 80 mg PO DAILY@08,13,17,21 ANDREW Stop: 05/29/19 07:59 Zolpidem Tartrate (Ambien) 5 mg PO HS PRN PRN Reason: Sleep Stop: 05/29/19 15:59 <Padmini Burger MD, FACOG - Last Filed: 04/29/19 07:55> Co-Signing Physician Notes Resident Physician Supervision Note: I interviewed and examined the patient. Discussed with Dr. Delaney Richards and agree with findings and plan as documented in the note. Any exceptions or clarifications are listed here: [None] Documented By: Padmini Burger MD, FACOG Resident Activity Tracking <Enmanuel Richards DO - Last Filed: 04/29/19 07:03> Resident Involvement: Resident Care Provided Care Provided: OB Delivery
[2019-04-29] MEDS: OXYTOCIN 20 UNITS in LACTATED RINGER'S 1,000 ML IV SCH (07:20)
--- NOTE | 2019-04-29 07:56 | Anesthesiology Progress Note ---
Date of Service April 29, 2019 Anesthesia Post Procedure Vital Signs Vital Signs: Temp Pulse Pulse Resp BP BP Pulse Ox 04/29/19 07:00 18 96 04/29/19 06:00 18 99 04/29/19 04:30 36.7 C 82 18 117/72 98 04/29/19 02:30 20 98 04/29/19 02:00 36.7 C 90 18 116/72 98 04/29/19 01:00 36.5 C 89 18 114/70 99 04/29/19 00:43 81 116/63 04/29/19 00:40 36.8 C 81 18 98 04/29/19 00:35 93 H 98 04/29/19 00:30 93 H 97 04/29/19 00:25 87 99 04/29/19 00:20 81 98 04/29/19 00:15 88 99 04/29/19 00:13 80 110/59 L 04/29/19 00:10 86 18 98 04/29/19 00:05 86 98 04/29/19 00:00 83 97 04/28/19 23:55 84 97 04/28/19 23:51 88 93 04/28/19 23:50 89 94 04/28/19 23:45 88 96 04/28/19 23:43 85 104/54 L 04/28/19 23:40 88 18 96 04/28/19 23:36 85 96/62 L 04/28/19 23:35 85 97 04/28/19 23:31 18 04/28/19 23:30 90 96 04/28/19 23:28 96 H 92 04/28/19 23:25 85 99 04/28/19 23:22 83 88 L 04/28/19 23:20 83 18 105/57 L 99 04/28/19 23:15 83 96 04/28/19 23:13 85 18 91 04/28/19 23:10 88 102/59 L 100 04/28/19 23:05 88 99 04/28/19 23:00 91 H 18 97/54 L 98 04/28/19 22:59 97 H 92 04/28/19 22:55 101 H 100 04/28/19 22:50 103 H 18 97/60 L 100 04/28/19 22:41 122 H 99/54 L 04/28/19 22:40 37.1 C 16 04/28/19 21:19 113 H 97 04/28/19 21:14 111 H 97 04/28/19 21:11 109 H 133/79 04/28/19 21:09 112 H 98 04/28/19 21:04 110 H 96 04/28/19 20:59 114 H 98 04/28/19 20:56 129 H 142/85 H 04/28/19 20:54 112 H 98 04/28/19 20:49 115 H 96 04/28/19 20:44 123 H 97 04/28/19 20:41 130 H 131/65 04/28/19 20:39 126 H 95 04/28/19 20:34 139 H 88 L 04/28/19 20:33 139 H 87 L 04/28/19 20:29 142 H 97 04/28/19 20:27 144 H 88 L 04/28/19 20:24 130 H 98 04/28/19 20:22 115 H 87 L 04/28/19 20:19 138 H 98 04/28/19 20:14 174 H 98 04/28/19 20:09 124 H 96 04/28/19 20:04 128 H 98 04/28/19 19:59 122 H 98 04/28/19 19:58 144 H 139/91 04/28/19 19:54 115 H 98 04/28/19 19:49 117 H 95 04/28/19 19:47 37.4 C 04/28/19 19:44 113 H 98 04/28/19 19:39 129 H 98 04/28/19 19:34 126 H 98 04/28/19 19:33 126 H 94 04/28/19 19:29 104 H 97 04/28/19 19:26 126 H 130/75 90 04/28/19 19:24 103 H 97 04/28/19 19:19 117 H 95 04/28/19 19:14 112 H 96 04/28/19 19:10 104 H 94 04/28/19 19:09 112 H 95 04/28/19 19:04 108 H 97 04/28/19 18:59 130 H 96 04/28/19 18:56 126 H 126/69 04/28/19 18:54 143 H 99 04/28/19 18:49 109 H 95 04/28/19 18:44 113 H 96 04/28/19 18:41 108 H 134/78 04/28/19 18:39 114 H 96 04/28/19 18:34 115 H 96 04/28/19 18:29 147 H 97 04/28/19 18:27 115 H 139/71 04/28/19 18:24 118 H 95 04/28/19 18:19 119 H 96 04/28/19 18:14 111 H 96 04/28/19 18:09 145 H 94 04/28/19 18:04 118 H 95 04/28/19 18:03 120 H 91 04/28/19 17:59 117 H 96 04/28/19 17:57 37.6 C H 22 04/28/19 17:56 123 H 127/75 04/28/19 17:54 124 H 96 04/28/19 17:49 109 H 97 04/28/19 17:44 124 H 98 04/28/19 17:41 122 H 126/62 04/28/19 17:39 116 H 80 L 04/28/19 17:34 144 H 75 L 04/28/19 17:29 117 H 97 04/28/19 17:26 115 H 130/68 04/28/19 17:24 119 H 98 04/28/19 17:23 118 H 91 04/28/19 17:19 112 H 95 04/28/19 17:18 133 H 93 04/28/19 17:14 112 H 98 04/28/19 17:12 125 H 132/62 04/28/19 17:09 123 H 99 04/28/19 17:04 125 H 97 04/28/19 16:59 126 H 24 97 04/28/19 16:56 122 H 122/68 04/28/19 16:54 122 H 99 04/28/19 16:49 126 H 99 04/28/19 16:44 123 H 97 04/28/19 16:41 120 H 121/73 04/28/19 16:39 124 H 100 04/28/19 16:34 117 H 100 04/28/19 16:29 122 H 100 04/28/19 16:26 118 H 120/58 L 04/28/19 16:24 117 H 100 04/28/19 16:19 118 H 100 04/28/19 16:17 36.6 C 20 04/28/19 16:14 117 H 100 04/28/19 16:09 118 H 100 04/28/19 16:04 109 H 98 04/28/19 15:59 135 H 100 04/28/19 15:56 128 H 130/67 86 L 04/28/19 15:54 126 H 99 04/28/19 15:49 105 H 100 04/28/19 15:44 119 H 99 04/28/19 15:41 141 H 143/63 H 04/28/19 15:39 122 H 80 L 04/28/19 15:38 108 H 88 L 04/28/19 15:34 111 H 89 L 04/28/19 15:29 116 H 97 04/28/19 15:26 113 H 135/88 04/28/19 15:25 106 H 86 L 04/28/19 15:24 107 H 99 04/28/19 15:19 110 H 100 04/28/19 15:14 104 H 99 04/28/19 15:11 104 H 137/93 88 L 04/28/19 15:09 102 H 99 04/28/19 15:04 103 H 100 04/28/19 14:59 102 H 100 04/28/19 14:58 36.9 C 04/28/19 14:57 104 H 145/94 H 04/28/19 14:54 110 H 99 04/28/19 14:49 106 H 100 04/28/19 14:44 104 H 99 04/28/19 14:42 117 H 159/97 H 04/28/19 14:39 102 H 100 04/28/19 14:34 104 H 99 04/28/19 14:30 20 04/28/19 14:29 108 H 100 04/28/19 14:26 108 H 148/86 H 04/28/19 14:24 107 H 100 04/28/19 14:19 105 H 100 04/28/19 14:14 111 H 99 04/28/19 14:11 94 H 121/75 04/28/19 14:09 93 H 99 04/28/19 14:04 91 H 98 04/28/19 14:00 20 04/28/19 13:59 94 H 98 04/28/19 13:56 89 110/74 04/28/19 13:54 90 98 04/28/19 13:49 91 H 99 04/28/19 13:44 95 H 99 04/28/19 13:41 90 119/73 04/28/19 13:39 100 H 99 04/28/19 13:34 95 H 99 04/28/19 13:30 18 04/28/19 13:29 94 H 99 04/28/19 13:26 97 H 129/74 04/28/19 13:24 98 H 99 04/28/19 13:19 93 H 98 04/28/19 13:14 91 H 98 04/28/19 13:11 96 H 138/88 04/28/19 13:09 110 H 100 04/28/19 13:04 106 H 99 04/28/19 13:00 37.5 C 20 04/28/19 12:59 102 H 97 04/28/19 12:56 100 H 120/62 04/28/19 12:54 102 H 97 04/28/19 12:49 102 H 97 04/28/19 12:44 103 H 96 04/28/19 12:41 98 H 108/57 L 04/28/19 12:39 98 H 97 04/28/19 12:34 100 H 97 04/28/19 12:31 18 04/28/19 12:29 107 H 98 04/28/19 12:27 98 H 108/64 04/28/19 12:24 97 H 97 04/28/19 12:19 102 H 97 04/28/19 12:14 102 H 98 04/28/19 12:12 102 H 120/74 04/28/19 12:09 106 H 99 04/28/19 12:04 108 H 100 04/28/19 12:00 20 04/28/19 11:59 105 H 100 04/28/19 11:57 107 H 119/75 04/28/19 11:54 108 H 99 04/28/19 11:49 112 H 100 04/28/19 11:44 116 H 98 04/28/19 11:41 108 H 133/82 04/28/19 11:39 107 H 99 04/28/19 11:34 96 H 98 04/28/19 11:30 18 04/28/19 11:29 100 H 99 04/28/19 11:27 96 H 134/83 04/28/19 11:24 98 H 98 04/28/19 11:19 98 H 98 04/28/19 11:14 103 H 99 04/28/19 11:12 103 H 134/89 04/28/19 11:09 102 H 99 04/28/19 11:04 98 H 99 04/28/19 11:00 37.5 C 20 04/28/19 10:59 107 H 99 04/28/19 10:56 104 H 136/80 04/28/19 10:54 98 H 99 04/28/19 10:49 99 H 98 04/28/19 10:44 93 H 96 04/28/19 10:42 90 122/69 04/28/19 10:39 94 H 98 04/28/19 10:34 98 H 98 04/28/19 10:30 20 04/28/19 10:29 98 H 97 04/28/19 10:26 90 119/67 04/28/19 10:24 99 H 97 04/28/19 10:19 92 H 98 04/28/19 10:14 96 H 96 04/28/19 10:12 87 126/64 04/28/19 10:09 93 H 97 04/28/19 10:04 94 H 96 04/28/19 10:00 20 04/28/19 09:59 90 97 04/28/19 09:56 90 126/70 04/28/19 09:54 92 H 97 04/28/19 09:49 93 H 97 04/28/19 09:44 96 H 98 04/28/19 09:41 97 H 131/82 04/28/19 09:39 95 H 98 04/28/19 09:34 94 H 98 04/28/19 09:30 18 04/28/19 09:29 93 H 98 04/28/19 09:26 92 H 127/83 04/28/19 09:24 93 H 98 04/28/19 09:19 89 98 04/28/19 09:14 94 H 98 04/28/19 09:12 98 H 139/86 04/28/19 09:09 104 H 100 04/28/19 09:04 107 H 98 04/28/19 09:00 37.1 C 20 04/28/19 08:59 100 H 98 04/28/19 08:56 96 H 111/66 04/28/19 08:54 97 H 97 04/28/19 08:49 99 H 97 04/28/19 08:44 99 H 98 04/28/19 08:41 93 H 105/64 04/28/19 08:39 93 H 97 04/28/19 08:34 96 H 97 04/28/19 08:30 20 04/28/19 08:29 98 H 97 04/28/19 08:26 96 H 111/73 04/28/19 08:24 97 H 98 04/28/19 08:19 95 H 98 04/28/19 08:14 114 H 100 04/28/19 08:11 107 H 119/81 04/28/19 08:09 100 H 98 04/28/19 08:04 99 H 98 04/28/19 08:00 20 04/28/19 07:59 105 H 99 04/28/19 07:56 100 H 113/71 Transfer of Care Handoff Completed per policy Notes Mental Status: alert / awake / arousable and participated in evaluation Nausea / Vomiting: adequately controlled Pain: adequately controlled Airway Patency, RR, SpO2: stable & adequate BP & HR: stable & adequate Hydration State: stable & adequate Neuraxial Anesthesia: was administered and sensory block resolved Anesthetic Complications: no major complications apparent and Pt Satisfied with anesthetic care Notes: Patient denies headache this morning. Denies sensation of weakness or residual numbness. Patient encouraged to contact anesthesia for any concerns or new headache
[2019-04-29] MEDS: PRENATAL VITAMIN 1 TAB PO SCH (08:56)
[2019-04-29] MEDS: FERROUS SULFATE 325 MG TAB PO SCH (08:56)
[2019-04-29] MEDS: DOCUSATE SODIUM 100 MG CAP PO SCH ×2 (08:56→19:23)
[2019-04-29] MEDS: NITROFURANTOIN MONOHYDRATE 100 MG CAP PO SCH ×2 (08:56→19:24)
[2019-04-29] MEDS: SIMETHICONE 80 MG CHEW PO SCH ×4 (08:56→21:17)
--- NOTE | 2019-04-29 10:51 | Anesthesiology Progress Note ---
Date of Service April 29, 2019 Anesthesia Post Procedure Vital Signs Vital Signs: Temp Pulse Pulse Resp BP BP Pulse Ox 04/29/19 10:00 16 98 04/29/19 09:00 18 96 04/29/19 08:00 18 97 04/29/19 07:35 18 96 04/29/19 07:00 18 96 04/29/19 06:00 18 99 04/29/19 04:30 36.7 C 82 18 117/72 98 04/29/19 02:30 20 98 04/29/19 02:00 36.7 C 90 18 116/72 98 04/29/19 01:00 36.5 C 89 18 114/70 99 04/29/19 00:43 81 116/63 04/29/19 00:40 36.8 C 81 18 98 04/29/19 00:35 93 H 98 04/29/19 00:30 93 H 97 04/29/19 00:25 87 99 04/29/19 00:20 81 98 04/29/19 00:15 88 99 04/29/19 00:13 80 110/59 L 04/29/19 00:10 86 18 98 04/29/19 00:05 86 98 04/29/19 00:00 83 97 04/28/19 23:55 84 97 04/28/19 23:51 88 93 04/28/19 23:50 89 94 04/28/19 23:45 88 96 04/28/19 23:43 85 104/54 L 04/28/19 23:40 88 18 96 04/28/19 23:36 85 96/62 L 04/28/19 23:35 85 97 04/28/19 23:31 18 04/28/19 23:30 90 96 04/28/19 23:28 96 H 92 04/28/19 23:25 85 99 04/28/19 23:22 83 88 L 04/28/19 23:20 83 18 105/57 L 99 04/28/19 23:15 83 96 04/28/19 23:13 85 18 91 04/28/19 23:10 88 102/59 L 100 04/28/19 23:05 88 99 04/28/19 23:00 91 H 18 97/54 L 98 04/28/19 22:59 97 H 92 04/28/19 22:55 101 H 100 04/28/19 22:50 103 H 18 97/60 L 100 04/28/19 22:41 122 H 99/54 L 04/28/19 22:40 37.1 C 16 04/28/19 21:19 113 H 97 04/28/19 21:14 111 H 97 04/28/19 21:11 109 H 133/79 04/28/19 21:09 112 H 98 04/28/19 21:04 110 H 96 04/28/19 20:59 114 H 98 04/28/19 20:56 129 H 142/85 H 04/28/19 20:54 112 H 98 04/28/19 20:49 115 H 96 04/28/19 20:44 123 H 97 04/28/19 20:41 130 H 131/65 04/28/19 20:39 126 H 95 04/28/19 20:34 139 H 88 L 04/28/19 20:33 139 H 87 L 04/28/19 20:29 142 H 97 04/28/19 20:27 144 H 88 L 04/28/19 20:24 130 H 98 04/28/19 20:22 115 H 87 L 04/28/19 20:19 138 H 98 04/28/19 20:14 174 H 98 04/28/19 20:09 124 H 96 04/28/19 20:04 128 H 98 04/28/19 19:59 122 H 98 04/28/19 19:58 144 H 139/91 04/28/19 19:54 115 H 98 04/28/19 19:49 117 H 95 04/28/19 19:47 37.4 C 22 04/28/19 19:44 113 H 98 04/28/19 19:39 129 H 98 04/28/19 19:34 126 H 98 04/28/19 19:33 126 H 94 04/28/19 19:29 104 H 97 04/28/19 19:26 126 H 130/75 90 04/28/19 19:24 103 H 97 04/28/19 19:19 117 H 95 04/28/19 19:14 112 H 96 04/28/19 19:10 104 H 94 04/28/19 19:09 112 H 95 04/28/19 19:04 108 H 97 04/28/19 18:59 130 H 96 0627/19 18:56 126 H 126/69 04/28/19 18:54 143 H 99 04/28/19 18:49 109 H 95 04/28/19 18:44 113 H 96 04/28/19 18:41 108 H 134/78 04/28/19 18:39 114 H 96 04/28/19 18:34 115 H 96 04/28/19 18:29 147 H 97 04/28/19 18:27 115 H 139/71 04/28/19 18:24 118 H 95 04/28/19 18:19 119 H 96 04/28/19 18:14 111 H 96 04/28/19 18:09 145 H 94 04/28/19 18:04 118 H 95 04/28/19 18:03 120 H 91 04/28/19 17:59 117 H 96 04/28/19 17:57 37.6 C H 22 04/28/19 17:56 123 H 127/75 04/28/19 17:54 124 H 96 04/28/19 17:49 109 H 97 04/28/19 17:44 124 H 98 04/28/19 17:41 122 H 126/62 04/28/19 17:39 116 H 80 L 04/28/19 17:34 144 H 75 L 04/28/19 17:29 117 H 97 04/28/19 17:26 115 H 130/68 04/28/19 17:24 119 H 98 04/28/19 17:23 118 H 91 04/28/19 17:19 112 H 95 04/28/19 17:18 133 H 93 04/28/19 17:14 112 H 98 04/28/19 17:12 125 H 132/62 04/28/19 17:09 123 H 99 04/28/19 17:04 125 H 97 04/28/19 16:59 126 H 24 97 04/28/19 16:56 122 H 122/68 04/28/19 16:54 122 H 99 04/28/19 16:49 126 H 99 04/28/19 16:44 123 H 97 04/28/19 16:41 120 H 121/73 04/28/19 16:39 124 H 100 04/28/19 16:34 117 H 100 04/28/19 16:29 122 H 100 04/28/19 16:26 118 H 120/58 L 04/28/19 16:24 117 H 100 04/28/19 16:19 118 H 100 04/28/19 16:17 36.6 C 20 04/28/19 16:14 117 H 100 04/28/19 16:09 118 H 100 04/28/19 16:04 109 H 98 04/28/19 15:59 135 H 100 04/28/19 15:56 128 H 130/67 86 L 04/28/19 15:54 126 H 99 04/28/19 15:49 105 H 100 04/28/19 15:44 119 H 99 04/28/19 15:41 141 H 143/63 H 04/28/19 15:39 122 H 80 L 04/28/19 15:38 108 H 88 L 04/28/19 15:34 111 H 89 L 04/28/19 15:29 116 H 97 04/28/19 15:26 113 H 135/88 04/28/19 15:25 106 H 86 L 04/28/19 15:24 107 H 99 04/28/19 15:19 110 H 100 04/28/19 15:14 104 H 99 04/28/19 15:11 104 H 137/93 88 L 04/28/19 15:09 102 H 99 04/28/19 15:04 103 H 100 04/28/19 14:59 102 H 100 04/28/19 14:58 36.9 C 04/28/19 14:57 104 H 145/94 H 04/28/19 14:54 110 H 99 04/28/19 14:49 106 H 100 04/28/19 14:44 104 H 99 04/28/19 14:42 117 H 159/97 H 04/28/19 14:39 102 H 100 04/28/19 14:34 104 H 99 04/28/19 14:30 20 04/28/19 14:29 108 H 100 04/28/19 14:26 108 H 148/86 H 04/28/19 14:24 107 H 100 04/28/19 14:19 105 H 100 04/28/19 14:14 111 H 99 04/28/19 14:11 94 H 121/75 04/28/19 14:09 93 H 99 04/28/19 14:04 91 H 98 04/28/19 14:00 20 04/28/19 13:59 94 H 98 04/28/19 13:56 89 110/74 04/28/19 13:54 90 98 04/28/19 13:49 91 H 99 04/28/19 13:44 95 H 99 04/28/19 13:41 90 119/73 04/28/19 13:39 100 H 99 04/28/19 13:34 95 H 99 04/28/19 13:30 18 04/28/19 13:29 94 H 99 04/28/19 13:26 97 H 129/74 04/28/19 13:24 98 H 99 04/28/19 13:19 93 H 98 04/28/19 13:14 91 H 98 04/28/19 13:11 96 H 138/88 04/28/19 13:09 110 H 100 04/28/19 13:04 106 H 99 04/28/19 13:00 37.5 C 20 04/28/19 12:59 102 H 97 04/28/19 12:56 100 H 120/62 04/28/19 12:54 102 H 97 04/28/19 12:49 102 H 97 04/28/19 12:44 103 H 96 04/28/19 12:41 98 H 108/57 L 04/28/19 12:39 98 H 97 04/28/19 12:34 100 H 97 04/28/19 12:31 18 04/28/19 12:29 107 H 98 04/28/19 12:27 98 H 108/64 04/28/19 12:24 97 H 97 04/28/19 12:19 102 H 97 04/28/19 12:14 102 H 98 04/28/19 12:12 102 H 120/74 04/28/19 12:09 106 H 99 04/28/19 12:04 108 H 100 04/28/19 12:00 20 04/28/19 11:59 105 H 100 04/28/19 11:57 107 H 119/75 04/28/19 11:54 108 H 99 04/28/19 11:49 112 H 100 04/28/19 11:44 116 H 98 04/28/19 11:41 108 H 133/82 04/28/19 11:39 107 H 99 04/28/19 11:34 96 H 98 04/28/19 11:30 18 04/28/19 11:29 100 H 99 04/28/19 11:27 96 H 134/83 04/28/19 11:24 98 H 98 04/28/19 11:19 98 H 98 04/28/19 11:14 103 H 99 04/28/19 11:12 103 H 134/89 04/28/19 11:09 102 H 99 04/28/19 11:04 98 H 99 04/28/19 11:00 37.5 C 20 04/28/19 10:59 107 H 99 04/28/19 10:56 104 H 136/80 04/28/19 10:54 98 H 99 Notes Mental Status: alert / awake / arousable and participated in evaluation Patient Amnestic to Procedure: Yes Nausea / Vomiting: adequately controlled Pain: adequately controlled Airway Patency, RR, SpO2: stable & adequate BP & HR: stable & adequate Hydration State: stable & adequate Anesthetic Complications: no major complications apparent and Pt Satisfied with anesthetic care
[2019-04-29] MEDS ORDERED: DC INTRASPINAL MORPHINE SCH (15:59)
[2019-04-29] MEDS ORDERED: ONDANSETRON INJ 2 MG/ML 2 ML VIAL IV PRN (16:00)
[2019-04-29] MEDS ORDERED: KETOROLAC 30 MG/ML VIAL IV PRN (16:00)
[2019-04-29] MEDS ORDERED: ZOLPIDEM TARTRATE 5 MG TAB PO PRN (16:00)
[2019-04-29] MEDS ORDERED: MEPERIDINE HCL 50 MG/ML CARP IV PRN (16:00)
[2019-04-29] MEDS ORDERED: DiphenhydrAMINE HCL 50 MG/ML VIAL IV PRN (16:00)
[2019-04-29] MEDS ORDERED: PROMETHAZINE HCL 25 MG in SODIUM CHLORIDE 0.9% 50 ML IV PRN (16:00)
[2019-04-29] MEDS ORDERED: BISACODYL 5 MG TABEC PO SCH (20:00)
[2019-04-29] MEDS: OXYCODONE/ACETAMINOPHEN 5mg/325mg TAB PO PRN (21:55)
[2019-04-30] MEDS: OXYCODONE/ACETAMINOPHEN 5mg/325mg TAB PO PRN (05:42)
--- NOTE | 2019-04-30 07:30 | Obstetrical Progress Note ---
Date of Service <Enmanuel Richards, DO - Last Filed: 04/30/19 07:30> April 30, 2019 Assessment & Plan <Enmanuel Richards DO - Last Filed: 04/30/19 07:30> (1) Status post section routine follow-up: -vital signs reviewed and WNL -Blood type: O-, GBS-, Rubella Nonimmune -pt doing well clinically -encourage ambulation, monitor and control pain with motrin tylenol, advance to regular diet, monitor lochia -cont encourage breast feeding -anticipate d/c tomorrow Subjective <Enmanuel LoSalvador Richards, DO - Last Filed: 04/30/19 07:30> 24 y/o POD2 found in bed this morning in NAD. Reports no acute overnight events. Pt states that she has no pain other than appropriate soreness. Tolerating PO intake without N/V. Able to ambulate without issue. She is breast and bottle feeding without issue. No issues with voiding, no BM yet but passing gas, pagan removed. No other acute concerns or complaints. Review of Systems All systems reviewed & are unremarkable except as noted in HPI & below Physical Exam <Enmanuel Richards, DO - Last Filed: 04/30/19 07:30> Constitutional WD/WN, vitals as above Respiratory normal respiratory effort, lungs clear to auscultation Cardiovascular RRR, no murmur, no edema Gastrointestinal (Abdomen) mild abd tenderness Incision C/D/I Skin no rashes, warm and dry Psychiatric A+Ox3, euthymic affect Lymphatic no LE swelling, no calf tenderness Results & Data <Enmanuel Richards, DO - Last Filed: 04/30/19 07:30> Vital Signs (Past 12 Hours) Vital Signs Temp Pulse Resp BP Pulse Ox 04/30/19 00:05 36.5 C 92 H 18 124/73 100 04/29/19 19:30 36.5 C 98 H 18 114/71 Laboratory Results Laboratory Results - last 24 hr 04/27/19 04/29/19 20:20 06:07 Blood Type O Negative O Negative Antibody Screen POSITIVE A Cancelled Antibody Identification Anti-D due to RhIg Screen Negative Medications Administered Current Inpatient Medications Benzocaine (Dermoplast Pain Relieving Oil Trough) 1 appln EXT UD PRN PRN Reason: use on skin as needed Stop: 05/28/19 22:51 Bisacodyl (Dulcolax) [address] PRN PRN PRN Reason: Constipation Stop: 05/30/19 22:51 Calcium Carbonate (Tums) 1,500 mg PO Q6H PRN PRN Reason: Indigestion Stop: 05/27/19 21:11 Last Admin: 04/28/19 16:35 Dose: 1,500 mg Documented by: Cocaine HCl (Supercream 0.870%) 1 gm EXT UD PRN PRN Reason: hemmorrhoidal inflammation Stop: 05/12/19 22:51 Diphenhydramine HCl (Benadryl Capsule) 25 mg PO QID PRN PRN Reason: Itching Stop: 05/29/19 15:59 Diphenhydramine HCl (Benadryl) 25 mg IV QID PRN PRN Reason: Itching Stop: 05/29/19 15:59 Docusate Sodium (Colace) 100 mg PO DAILY@08, [facility] Stop: 05/29/19 07:59 Last Admin: 04/29/19 19:23 Dose: 100 mg Documented by: Ferrous Sulfate (Feosol) 325 mg PO DAILY@08 [facility] Stop: 05/29/19 07:59 Last Admin: 04/29/19 08:56 Dose: 325 mg Documented by: Hydrocortisone (Anusol Hc) [address] BID PRN PRN Reason: Hemorrhoids Stop: 05/28/19 22:51 Oxytocin (Pitocin) 30 units in 500 mls @ 333.333 mls/hr IV .Q1H30M PRN; Protoco l PRN Reason: Bleeding Control Stop: 05/27/19 20:12 Lactated Ringer's (Lr) 1,000 mls @ 125 mls/hr IV .Q8H ANDREW Stop: 05/28/19 22:59 Promethazine HCl 25 mg/ Sodium (Chloride) 51 mls @ 204 mls/hr IV Q4H PRN PRN Reason: Nausea And Vomiting Stop: 05/29/19 15:59 Ibuprofen (Motrin) 600 mg PO Q4H PRN PRN Reason: Pain Stop: 05/28/19 22:51 Ketorolac Tromethamine (Toradol) 30 mg IV Q6H PRN PRN Reason: Pain Stop: 05/04/19 15:59 Magnesium Hydroxide (Milk Of Magnesia) 30 ml PO HS PRN PRN Reason: Constipation Stop: 05/28/19 22:51 Meperidine HCl (Demerol) 50 - 75 mg IV Q4H PRN PRN Reason: Pain Stop: 05/13/19 15:59 Nitrofurantoin Macrocrystals (Macrobid) 1 mg PO BID [facility] Stop: 05/27/19 23:29 Last Admin: 04/29/19 19:24 Dose: 1 mg Documented by: Ondansetron HCl (Zofran) 4 mg IV Q4H PRN PRN Reason: Nausea And Vomiting Stop: 05/29/19 15:59 Oxycodone/Acetaminophen (Percocet 5mg/325mg) 1 - 2 tab PO Q4H PRN PRN Reason: Pain Stop: 05/13/19 15:59 Last Admin: 04/30/19 05:42 Dose: 2 tab Documented by: Terrence Multivit/Oracle Reports Developer/Iron/Folic Ac ( Vitamin) 1 tab PO DAILY@08 [facility] Stop: 05/29/19 07:59 Last Admin: 04/29/19 08:56 Dose: 1 tab Documented by: Ranitidine HCl (Zantac) 150 mg PO Q12H PRN PRN Reason: Heartburn Stop: 05/27/19 21:11 Last Admin: 04/29/19 01:06 Dose: 150 mg Documented by: Sennosides (Senokot) 17.2 mg PO HS PRN PRN Reason: Constipation Stop: 05/28/19 22:51 Simethicone (Mylicon) 80 mg PO DAILY@08,13,17,21 [facility] Stop: 05/29/19 07:59 Last Admin: 04/29/19 21:17 Dose: 80 mg Documented by: Zolpidem Tartrate (Ambien) 5 mg PO HS PRN PRN Reason: Sleep Stop: 05/29/19 15:59 <Tod Richard MD - Last Filed: 04/30/19 08:12> Co-Signing Physician Notes Patient seen and evaluated and agree with the above findings and plan. Patient reporting poor pain control. Discussed optimizing pain control. Changed Motrin and Tylenol to scheduled and replaced Percocet for Oxycodone. Encouraged regular ambulation and good bowel care. Resident Activity Tracking <Enmanuel Richards, DO - Last Filed: 04/30/19 07:30> Resident Involvement: Resident Care Provided Care Provided: OB Delivery
[2019-04-30] MEDS ORDERED: OXYCODONE HCL IR 5 MG TAB (IMMEDIATE RELEASE) PO PRN (08:00)
[2019-04-30 08:02] LABS: Hematocrit (blood only) 28.3 % (37-47); Hemoglobin 9.8 g/dL (12.0-16.0)
[2019-04-30] MEDS: DOCUSATE SODIUM 100 MG CAP PO SCH ×2 (08:43→19:52)
[2019-04-30] MEDS: PRENATAL VITAMIN 1 TAB PO SCH (08:43)
[2019-04-30] MEDS: SIMETHICONE 80 MG CHEW PO SCH ×4 (08:43→19:52)
[2019-04-30] MEDS: FERROUS SULFATE 325 MG TAB PO SCH (08:43)
[2019-04-30] MEDS: NITROFURANTOIN MONOHYDRATE 100 MG CAP PO SCH ×2 (08:43→19:52)
[2019-04-30] MEDS: IBUPROFEN 600 MG TAB PO SCH ×4 (13:21→19:52)
[2019-04-30] MEDS: ACETAMINOPHEN 325 MG TAB PO SCH ×3 (17:59→19:52)
[2019-04-30] MEDS ORDERED: BISACODYL 10 MG SUPP PR PRN (22:52)
[2019-05-01] MEDS: IBUPROFEN 600 MG TAB PO SCH ×4 (00:15→12:12)
[2019-05-01] MEDS: ACETAMINOPHEN 325 MG TAB PO SCH ×2 (01:58→08:07)
--- NOTE | 2019-05-01 07:45 | Obstetrical Progress Note ---
Date of Service May 01, 2019 Assessment & Plan (1) Status post section routine follow-up: - doing well - BP stable - pt desires d/c home - instructions/Rx given - f/u in 6 weeks Subjective Ambulation: ambulating normally Voiding: no voiding problems Diet Tolerance:: regular diet Feeding Type:: breast feeding Physical Exam Constitutional WD/WN, vitals as above Gastrointestinal (Abdomen) Incision intact, appropriate post-op tenderness Musculoskeletal (-) deep calf tenderness Results & Data Vital Signs (Past 12 Hours) Vital Signs Temp Pulse Resp BP Pulse Ox 05/01/19 00:15 36.7 C 84 16 124/84 100
[2019-05-01] MEDS: DOCUSATE SODIUM 100 MG CAP PO SCH (08:07)
[2019-05-01] MEDS: FERROUS SULFATE 325 MG TAB PO SCH (08:07)
[2019-05-01] MEDS: SIMETHICONE 80 MG CHEW PO SCH ×2 (08:07→12:12)
[2019-05-01] MEDS: PRENATAL VITAMIN 1 TAB PO SCH (08:07)
[2019-05-01] MEDS: NITROFURANTOIN MONOHYDRATE 100 MG CAP PO SCH (08:10)
--- NOTE | 2019-05-02 16:49 | Discharge Summary ---
PRINCIPAL DIAGNOSIS: Intrauterine at 40 and 3/7 weeks, gestational hypertension, failed induction of labor with arrest of descent and unfavorable cervix. PRINCIPAL PROCEDURE: Primary low transverse section with delivery of a viable male , 9 pounds 8 ounces, direct occiput posterior presentation HISTORY: The patient is a 24-year-old G1, P0 white female who presents for induction because of elevated blood pressure and post-dates. She received a cervical balloon and then Pitocin on the evening of 04/27/2019. By the morning she was dilated to 4 cm and membranes ruptured spontaneously. IUPC was placed after a 4 bag of fluid was ruptured. She progressed to full dilation despite pushing effectively for over 4 hours presenting part did not descend past +2 station. She underwent a primary low transverse section because of arrest of descent and she had an uncomplicated postop course. She was eating regular diet on her 1st postop day. She remained afebrile throughout her hospital stay, her blood pressures actually remained normotensive also during her admission postoperatively. She was voiding and ambulating without difficulty, tolerating regular diet. Pain medication controlled her pain well. Hemoglobin on admission was 13.9, hematocrit 40.1. PIH labs were within normal limits. First postop day hemoglobin 10.9, hematocrit 31.4; second postop day hemoglobin 9.8, hematocrit 28.3. She was sent home in good condition with prescriptions for Percocet 1-2 tablets p.o. q. 6 hours p.r.n. pain and Motrin 600 mg p.o. q. 6 hours p.r.n. pain. She is to call for temperature of 101 degrees or higher, heavy vaginal bleeding, burning with urination, increased redness, drainage or pain in her incision, calf tenderness or any other concerns. She is to be seen in the office in 6 weeks for followup visit.
== END 2019-05-01 15:15 | disposition home or self-care (01) | DRG 787 ==
LOC: OPB 16:32 → 4S1 16:33 → 4S2 04-29 01:00
DX: O77.0 Labor and delivery complicated by meconium in amniotic fluid; O62.1 Secondary uterine inertia; Z3A.40 40 weeks gestation of pregnancy; O14.04 Mild to moderate pre-eclampsia, complicating childbirth; O23.43 Unspecified infection of urinary tract in pregnancy, third trimester; Z37.0 Single live birth

== ENCOUNTER 2020-08-27 07:14 | Inpatient (IN) ==
--- NOTE | 2020-08-17 14:24 | History & Physical Report ---
Date of Service August 17, 2020 Assessment & Plan (1) Previous delivery affecting , antepartum: Plan for repeat section. Informed consent reviewed in office. History of Present Illness Chief Complaint: repeat CS Primary Care Provider: Yuniel Celaya 25yo with EDC 08/29/2020. complicated by: History of section - Desires repeat C/S SCHEDULED FOR 08/[address] AGUIRRE Recurrent uti, twice so far this , ecoli History of preeclampsia - baseline labs, ASA at 12w - protein 156mg, serum labs WNL. Need for Rhogam due to RH negative mother Need for Rubella Rhogam given 06/08/20 UTI- bring in for straight cath 1 wk after Macrobid- Starting on 05/24/20 WILL BE STRAIGHT CATHED AT 06/08 appt on Macrobid suppression therapy Flu shot given 07/20/2020 SB Allergies Allergy/AdvReac Type Severity Reaction Status Date / Time No Known Drug Allergies Allergy Verified 08/17/20 13:59 Home Medications Home Medications Medication Instructions Recorded Confirmed Type multivitamin no.47-iron fum 27 cap PO cap 05/30/19 08/17/20 History mg-folate no.1 1 mg-dha 300 mg capsule aspirin 81 mg tablet,delayed 81 mg PO DAILY 03/13/20 08/17/20 History release prenat.vits,milton,[id number] 1 tab PO DAILY #30 tab 03/15/20 08/17/20 Rx levothyroxine PO 04/16/20 08/17/20 History nitrofurantoin 100 mg PO .COMPLEX #30 cap 08/13/20 08/17/20 Rx monohydrate/macrocrystals 100 mg capsule Patient History Medical History History of chemotherapy History of varicella vaccination Hx of therapeutic radiation 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 Pancreatitis D/t chemotherapy Preeclampsia UTI (urinary tract infection) Surgical History S/P section [place] teeth extracted Family History Father Hypertension Hypercholesterolemia Grandmother (Maternal) Hypertension Thyroid disease Hypercholesterolemia Grandfather (Paternal) Hypertension Grandmother (Paternal) Hypertension Other Breast cancer Cardiac disorder Social History Smoking Status: Never smoker Hx Alcohol Use: No Hx Substance Use: No Preferred Language: Urdu Communication Ability: Effective Cellar Worker Required: No Beliefs That Will Affect Care: None marital status: marital status details: Shabbir Bradley (38) [phone] Current Living Situation: Spouse and Family Current Living Situation Comment: lives with spouse, son, step-son, dog, [id number] changing litter current occupational status: employed current occupation: banking consultant [employer] Feels Safe at Home: Yes Assistive Devices: None Review of Systems All systems reviewed & are unremarkable except as noted in HPI & below Physical Exam Constitutional: WD/WN, vitals as above Respiratory: normal respiratory effort, lungs clear to auscultation no respiratory distress Cardiovascular: Rate/Rhythm: regular rate and regular rhythm Gastrointestinal (Abdomen): Inspection/Auscultation: abdomen normal to inspection Percussion/Palpation: abdomen soft; abdomen nontender Gravid. No s/s chorio or abruption. Skin: no rashes, warm and dry Psychiatric: A+Ox3, euthymic affect Coding Level of Care Code None Diagnoses Previous delivery affecting , antepartum O34.219
[~2020-08-27 07:14] MED LIST: CITRIC ACID/SODIUM CITRATE 15 ML UDC PO SCH; LACTATED RINGER'S 1,000 ML IV SCH; ceFAZolin 2000MG 2,000 MG/15 ML SYR IV SCH
--- NOTE | 2020-08-27 08:29 | History & Physical Bridge Note ---
Date of Service August 27, 2020 History & Physical Bridge Note I have examined the patient, reviewed the History & Physical and in the interval since the performance of the History & Physical I have noted the following changes of clinical significance: no changes noted
[2020-08-27 09:02] LABS: Hematocrit (blood only) 38.5 % (37-47); Hemoglobin 12.9 g/dL (12.0-16.0); Mean Corpuscular Hgb Conc 33.5 g/dL (32-36); Mean Corpuscular Volume 89.5 fL (80-100); Mean Platelet Volume 9.5 fL (7.4-10.4); Platelet Count 191 K/uL (130-400); RDW Coefficient of Variation 13.2 % (11.5-14.5); RDW Standard Deviation 42.6 fL (36.4-46.3); White Blood Count 9.66 K/uL (4.8-10.8)
[2020-08-27 09:45] LABS: Albumin Level 2.6 gm/dl (3.4-5.0); BUN Creatinine Ratio 14.6 (10-20); Calcium 8.7 mg/dl (8.5-10.1); Creatinine Clr Calc Pharmacy 181.2 ml/min; Est GFR (African American) 148.1; Est GFR (Non-African American) 127.8; Potassium 3.9 mmol/L (3.5-5.1)
[2020-08-27 09:46] LABS: Albumin Globulin Ratio 0.7 (0.9-2); Bilirubin,Total 0.4 mg/dl (0.2-1); Globulin 3.9 gm/dl (2.5-4.0); Total Protein 6.5 gm/dl (6.4-8.2)
--- NOTE | 2020-08-27 10:05 | Anesthesiology Consultation ---
Date of Service August 27, 2020 Assessment & Plan Chart Review Chart Review: Acceptable Risk for Surgery and Patient NOT seen in Pre Admission Testing Consults Requested none ASA ASA2 Proposed Anesthesia Anesthesia Type: Spinal Risk / Benefits Reviewed With: PT / POA / Parent / Guardian, Accepts Plan and Informed Consent Obtained Additional Comments: covid test neg. History Surgery Operation Date: 08/27/20 08:50 Proposed Procedures p Section in - Claire Condener, Height/Weight Height: 5 ft 8 in Weight: 94.347 kg Allergies Allergy/AdvReac Type Severity Reaction Status Date / Time No Known Drug Allergies Allergy Verified 08/24/20 16:47 Medications Home Medications Medication Instructions Recorded Confirmed Last Taken aspirin 81 mg tablet,delayed 81 mg PO PM 03/13/20 08/27/20 08/26/20 release nitrofurantoin monohyd/m-cryst 100 mg PO PM 08/23/20 08/27/20 08/26/20 [Macrobid] prenat.vits,milton,[id number] 1 tab PO PM 08/23/20 08/27/20 08/26/20 Active Medications Generic Name Dose Route Start Last Admin Trade Name Freq PRN Reason Stop Dose Admin Citric Acid/Sodium Citrate 30 ml 08/27/20 06:00 08/27/20 10:03 Citric Acid/Sodium Citrate 15 Ml Udc PO 08/27/20 18:00 30 ml PREOP ANDREW Administration NPO Date Last Intake of Fluids: 08/26/20 Time Last Intake of Fluids: 23:55 Date Last Intake of Solids: 08/26/20 Time Last Intake of Solids: 22:00 Past Medical History Medical History History of chemotherapy History of varicella vaccination Hx of seizure disorder AGE 11> DUE TO EFFECTS OF CHEMO MEDS> NONE SINCE Hx of therapeutic radiation AGE 11 FOR CANCER> NOW RESOLVED 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 Pancreatitis D/t chemotherapy Preeclampsia UTI (urinary tract infection) CURRENTLY ON ABX FOR THIS Exercise / Class Metabolic Activity II 4-5 Yardwork/Stairs/Walk up hill Past Family History Family History Father Hypertension Hypercholesterolemia Grandmother (Maternal) Hypertension Thyroid disease Hypercholesterolemia Grandfather (Paternal) Hypertension Grandmother (Paternal) Hypertension Other Breast cancer Cardiac disorder Past Surgical History Surgical History History of vascular access device REMOVED AGE 14 S/P section [place] teeth extracted Past Anesthesia History No Hx of Anesthesia Complications and No Family Hx of Anesthesia Complications History of PONV No Hx of PONV and No Hx of Motion Sickness Social History Smoking Status: Never smoker Do You Dip or Chew Tobacco: No Hx Alcohol Use: No Hx Substance Use: No substance use type: does not use Physical Exam Vital Signs Last Vital Signs Temp 36.7 C 08/27/20 08:00 Pulse 93 H 08/27/20 08:06 Resp 18 08/27/20 09:30 BP 125/81 08/27/20 08:06 Constitutional + obese ENMT Mouth: no dentition abnormality Thyromental Distance: < 3.5 Finger Breadths Mallampati Class: II Neck normal visual inspection and trachea midline; neck extension not limited Respiratory normal respiratory effort Auscultation: lungs clear to auscultation bilaterally Cardiovascular Rate/Rhythm: regular rate and regular rhythm Heart Sounds: no murmur Vessels: no carotid bruit Musculoskeletal Spine: lumbar spine normal to inspection; normal cervical ROM Neurologic moves all extremities Motor/Sensory: no sensory deficit Psychiatric Orientation: alert and oriented x 3 Testing Laboratory Results 08/27/20 08:46 08/27/20 08:46 Blood Type O Negative 08/27/20 07:50 Antibody Screen NEGATIVE 08/27/20 07:50
[2020-08-27] MEDS ORDERED: OXYTOCIN 10 UNITS/ML VIAL ONE ×2 (10:08→10:47)
[2020-08-27] MEDS ORDERED: fentaNYL citrate 100 MCG/2 ML VIAL ONE (10:13)
[2020-08-27] MEDS ORDERED: MoRPHine SULFATE PF 1 MG/ML 10 ML AMP/VIAL ONE (10:13)
[2020-08-27] MEDS ORDERED: PHENYLEPHRINE 100MCG/ML 5ML SYR ONE (10:40)
[2020-08-27] MEDS ORDERED: CARBOPROST TROMETHAMINE 250 MCG/ML AMPUL ONE (10:49)
[2020-08-27] MEDS ORDERED: CARBOPROST TROMETHAMINE 250 MCG/ML AMPUL IM ONE (11:16)
--- NOTE | 2020-08-27 11:26 | Operative Report ---
PG Post Operative Report Pre & Post Diagnosis Operation Date: 08/27/20 08:50 Pre-Op Diagnosis: History of Caesarean Section x1; Desires Repeat Post-Op Diagnosis: Same; delivery of a live male child at 1045 I identified the patient and participated in the time-out.: Yes Procedure Operation Date: 08/27/20 08:50 Actual Procedures p Section in - Claire Aguirre DO Surgeon Claire Aguirre DO Telecommunications Field Technician Jagjit Patel MD Estimated Blood Loss 800 Findings Consistent with Post-Op Diagnosis Viable male , Apgars 8/8. Weight 9#12oz. Specimens placenta, cord blood, cord gas. Drains pagan, clear yellow Anesthesia Type Spinal Complications none Disposition Accompanied Patient To Recovery: Yes Disposition: L&D Indications 25yo @ 39 5/, history of x 1, desire for repeat. Normal uterus, tubes, ovaries. Description of Procedure The patient was seen in her labor and delivery room, risks benefits and alternatives to surgery were reviewed. Informed consent obtained. Questions were answered. She was taken to the operating room, spinal anesthesia was administered. She was then prepared and draped in the usual sterile fashion in the supine position with a leftward tilt. Timeout was confirmed. A Pfannenstiel skin incision was made with a scalpel, and carried through to the underlying layer of fascia. Fascia was nicked at midline, and this incision was extended bilaterally. The superior aspect of the fascial incision was grasped with Hakan clamps x2, elevated off the underlying rectus abdominis muscles, and dissected sharply and bluntly. In similar fashion, the inferior aspect of the fascial incision was dissected. The rectus abdominis muscles were , and the peritoneum was entered bluntly digitally. This was extended bilaterally. The bladder flap was taken down carefully using Metzenbaum scissors. Using a new scalpel, a low transverse uterine incision was created. Clear amniotic fluid noted. The infant was delivered from a cephalic presentation. The head delivered with assist of Kiwi vacuum, followed by shoulders and body. Spontaneous cry heard. The cord was doubly clamped and cut, and the infant was handed off to the waiting fisher terrapin. A segment was retained for cord gases. Cord blood was obtained. The placenta was delivered spontaneously intact. The uterus was exteriorized, and cleared of all clots and debris. The hysterotomy incision was reapproximated using 0 Vicryl in a running locked stitch. A second layer of the same suture was used to imbricate the incision. Posterior uterus was evaluated and normal. The uterus was returned to the abdomen, and gutters were cleared of clots and debris. Excellent hemostasis was observed. The fascial incision was reapproximated using 0 Vicryl in a running stitch. The subcutaneous tissue was irrigated, and reapproximated using 2-0 plain gut in a running stitch. The skin was reapproximated using 4-0 Vicryl in a running subcuticular stitch. Steri-Strips and a bandage were applied. The patient tolerated the procedure well, and will be taken to the recovery area in stable and good condition. I attest to the content of the Intraoperative Record and any orders documented therein. Any exceptions are noted below.
[2020-08-27] MEDS ORDERED: NALOXONE HCL 0.4 MG/1 ML VIAL/CARP IV PRN (11:32)
[2020-08-27] MEDS ORDERED: NALOXONE HCL 1 MG in SODIUM CHLORIDE 0.9% 1000ML 1,000 ML IV PRN (11:32)
[2020-08-27] MEDS ORDERED: MoRPHine SULFATE PF 1 MG/ML 10 ML AMP/VIAL INT SPINAL ONE (11:32)
[2020-08-27] MEDS ORDERED: PROMETHAZINE HCL 25 MG in SODIUM CHLORIDE 0.9% 50 ML IV PRN (11:32)
[2020-08-27] MEDS ORDERED: ePHEDrine sulfate 50 MG/ML AMP IV PRN (11:32)
[2020-08-27] MEDS ORDERED: ONDANSETRON INJ 2 MG/ML 2 ML VIAL IV PRN (11:32)
[2020-08-27] MEDS ORDERED: LACTATED RINGER'S 500 ML IV PRN (11:32)
[2020-08-27] MEDS ORDERED: NALOXONE HCL 0.08 MG in SYRINGE 1.8 ML IV PRN (11:32)
[2020-08-27] MEDS ORDERED: SODIUM CHLORIDE 0.9% 1000ML 1,000 ML IV SCH (11:45)
[2020-08-27] MEDS ORDERED: DC INTRASPINAL MORPHINE SCH (11:45)
[2020-08-27] MEDS ORDERED: NO NARCOTICS OR SEDATIVES SCH (11:45)
[2020-08-27] MEDS: KETOROLAC 30 MG/ML VIAL IV PRN ×2 (12:02→20:14)
[2020-08-27] MEDS ORDERED: DIPHTHERIA/TETANUS/PERTUSSIS 0.5 ML SYR/VIAL IM ONE (12:10)
[2020-08-27] MEDS ORDERED: HYDROCORTISONE ACETATE 25 MG SUPP PR PRN (12:10)
[2020-08-27] MEDS ORDERED: MEASLES, MUMPS & RUBELLA VIRUS VIAL SQ ONE (12:10)
[2020-08-27] MEDS ORDERED: SUPERCREAM 0.870% 15 GM JAR EXT PRN (12:10)
[2020-08-27] MEDS ORDERED: SENNA 8.6 MG TAB PO PRN (12:10)
[2020-08-27] MEDS ORDERED: MAGNESIUM HYDROXIDE SUSP 30 ML UDC PO PRN (12:10)
[2020-08-27] MEDS ORDERED: BENZOCAINE 20% AER SPR 82.5 GM CAN EXT PRN (12:10)
[2020-08-27 12:18] LABS: Base Excess Cord Arterial Bld -4.4 mEq/L (-9-1.8); Base Excess Cord Venous Blood -0.6 mEq/L (-7.7-1.9); CO2 Cord Arterial Blood 65 mmHg (39.1-73.5); Cord Venous Blood HCO3 26 mmol/L (18.4-26.8); Cord Venous Blood PCO2 48 mmHg (30.4-57.2); Cord Venous Blood PO2 21 mmHg (14.1-43.3); Cord Venous Blood pH 7.34 (7.20-7.44); HCO3 Cord Arterial Blood 25 mmol/L (19.7-28.5); PO2 Cord Arterial Blood 16 mmHg (4.1-31.7); pH Cord Arterial Blood 7.19 (7.1-7.38)
[2020-08-27 12:21] LABS: Oxygen Sat Cord Arterial Blood < 60.0 % (<60)
[2020-08-27 12:22] LABS: O2 Saturation Cord Venous Bld < 60.0 % (<68)
[2020-08-27] MEDS: OXYTOCIN 20 UNITS in LACTATED RINGER'S 1,000 ML IV SCH ×2 (12:26→17:24)
--- NOTE | 2020-08-27 12:36 | Anesthesiology Progress Note ---
Date of Service August 27, 2020 Anesthesia Post Procedure Vital Signs Vital Signs: Temp Pulse Resp BP Pulse Ox 08/27/20 12:31 70 118/63 08/27/20 12:30 79 100 08/27/20 12:25 83 99 08/27/20 12:22 75 123/63 08/27/20 12:20 77 100 08/27/20 12:15 81 98 08/27/20 12:11 77 113/69 08/27/20 12:10 80 97 08/27/20 12:05 79 96 08/27/20 12:01 85 109/66 08/27/20 12:00 80 96 08/27/20 11:55 87 96 08/27/20 11:52 89 114/68 08/27/20 11:50 85 96 08/27/20 11:45 82 96 08/27/20 11:41 85 112/75 08/27/20 11:40 83 98 08/27/20 11:35 80 96 08/27/20 11:31 80 113/69 08/27/20 11:30 80 96 08/27/20 10:00 20 08/27/20 09:30 18 08/27/20 09:00 18 08/27/20 08:30 20 08/27/20 08:06 93 H 125/81 08/27/20 08:00 36.7 C 18 08/27/20 07:45 36.7 C 20 08/27/20 07:35 96 H 133/97 Transfer of Care Handoff Completed per policy Notes Mental Status: alert / awake / arousable Patient Amnestic to Procedure: Yes Nausea / Vomiting: adequately controlled Pain: adequately controlled Airway Patency, RR, SpO2: stable & adequate BP & HR: stable & adequate Hydration State: stable & adequate Neuraxial Anesthesia: was administered and sensory block is resolving Anesthetic Complications: no major complications apparent
[2020-08-27] MEDS: SIMETHICONE 80 MG CHEW PO SCH ×3 (15:08→20:13)
[2020-08-27] MEDS: diphenhydrAMINE 50 MG/ML VIAL IV PRN ×2 (17:18→23:27)
[2020-08-27] MEDS: DOCUSATE SODIUM 100 MG CAP PO SCH (20:13)
[2020-08-28] MEDS: KETOROLAC 30 MG/ML VIAL IV PRN ×2 (04:02→10:56)
[2020-08-28] MEDS ORDERED: OXYTOCIN 30 UNITS in LACTATED RINGER'S 1,000 ML IV SCH (04:30)
[2020-08-28] MEDS ORDERED: LACTATED RINGER'S 1,000 ML IV SCH (04:31)
--- NOTE | 2020-08-28 06:08 | Obstetrical Progress Note ---
Date of Service <Celio Donnelly MD - Last Filed: 08/28/20 06:21> August 28, 2020 Assessment & Plan <Celio Donnelly MD - Last Filed: 08/28/20 06:21> (1) : - PNL: Rh neg (received rhogam during ), RI, GBS neg, COVID neg - Feels well today. Eating well, pain well conmtrolled - Pain well controlled with ibuprofen 600mg Q4H PRN - Routine postoperative care -- OOB, ambulation, diet progression as tolerated - Remove Pagan this AM - After discharge will have 6 week follow-up with Dr. Aguirre Day #:: 1 Subjective <Celio Donnelly MD - Last Filed: 08/28/20 06:21> Vamsi is a 25 y/o female who is POD #1 following repeat delivery at 39+ weeks. She reports feeling well overall this morning. Light abdominal cramping and 5/10 pain well managed on analgesics. Pagan catheter still in. Tolerating meals overnight without difficulty. Not yet been able to ambulate. Is passing gas and no bowel movement yet. Has persistent lochia with some improvement this morning. Currently . Review of Systems Denies fever or chills. Denies shortness of breath or cough. Denies chest pain. Denies breast pain. Denies dysuria. Denies leg pain or leg swelling. Denies headache or changes in vision. Physical Exam <Celio Donnelly MD - Last Filed: 08/28/20 06:21> General: Alert, oriented. No acute distress. Cardiac: Regular rate and rhythm. No murmurs. Respiratory: Clear to auscultation bilaterally a/p, no wheezes/rales/rhonchi. No increased work of breathing. Symmetrical chest rise. No respiratory distress. Abdomen: Soft, nontender, nondistended. Bowel sounds present. Uterus: Uterine fundus firm, palpable 1 cm below umbilicus. Surgical scar clean and healing well. Lower Extremities: No lower extremity edema or swelling. No deep calf pain. Rehana n's negative bilaterally. Results & Data ([facility]) <Celio Donnelly MD - Last Filed: 08/28/20 06:21> Vital Signs (Past 12 Hours) Vital Signs Temp Pulse Resp BP Pulse Ox 08/28/20 04:05 36.5 C 90 18 111/74 100 08/28/20 03:10 20 99 08/28/20 02:40 18 99 08/28/20 01:33 18 98 08/28/20 00:35 18 99 08/27/20 23:20 37.4 C 89 20 111/83 98 08/27/20 23:00 18 98 08/27/20 22:00 18 96 08/27/20 21:00 18 98 08/27/20 19:50 37.2 C 96 H 18 113/71 98 08/27/20 19:10 18 97 <Shanice Patel MD, FACOG - Last Filed: 08/28/20 06:52> Co-Signing Physician Notes Resident Physician Supervision Note: I interviewed and examined the patient. Discussed with Dr. Velazco and agree with findings and plan as documented in the note. Any exceptions or clarifications are listed here: Doing well postop day one. Encourage ambulation, pagan out--void, no n/v, adat. Routine care. Documented By: Shanice Patel MD, FACOG Resident Activity Tracking <Celio Donnelly MD - Last Filed: 08/28/20 06:21> Resident Involvement: Resident Care Provided Care Provided: OB Delivery
[2020-08-28 06:43] LABS: Basophils # (auto) 0.01 K/uL (0-0.2); Basophils % (auto) 0.1 %; Eosinophils # (auto) 0.09 K/uL (0-0.5); Eosinophils % (auto) 0.9 %; Hematocrit (blood only) 29.3 % (37-47); Immature Granulocytes # (auto) 0.05 K/uL (0.00-0.02); Immature Granulocytes % (auto) 0.5 %; Lymphocytes # (auto) 2.63 K/uL (1.2-3.4); Lymphocytes % (auto) 25.3 %; Mean Corpuscular Hemoglobin 30.4 pg (25-34); Mean Corpuscular Hgb Conc 34.1 g/dL (32-36); Mean Corpuscular Volume 89.1 fL (80-100); Mean Platelet Volume 9.2 fL (7.4-10.4); Monocytes # (auto) 0.66 K/uL (0.11-0.59); Monocytes % (auto) 6.3 %; Neutrophils # (auto) 6.96 K/uL (1.4-6.5); Neutrophils % (auto) 66.9 %; Platelet Count 150 K/uL (130-400); RDW Coefficient of Variation 13.1 % (11.5-14.5); RDW Standard Deviation 42.4 fL (36.4-46.3); Red Blood Count 3.29 M/uL (4.2-5.4)
[2020-08-28] MEDS: PRENATAL VITAMIN 1 TAB PO SCH (08:28)
[2020-08-28] MEDS: DOCUSATE SODIUM 100 MG CAP PO SCH ×2 (08:28→21:27)
[2020-08-28] MEDS: SIMETHICONE 80 MG CHEW PO SCH ×4 (08:28→21:16)
[2020-08-28] MEDS: FERROUS SULFATE 325 MG TAB PO SCH (08:28)
[2020-08-28] MEDS ORDERED: diphenhydrAMINE Capsule 25 MG CAP PO PRN (11:44)
[2020-08-28] MEDS ORDERED: MEPERIDINE HCL 50 MG/ML CARP IV PRN (11:44)
[2020-08-28] MEDS ORDERED: ONDANSETRON INJ 2 MG/ML 2 ML VIAL IV PRN (11:44)
[2020-08-28] MEDS ORDERED: PROMETHAZINE HCL 25 MG in SODIUM CHLORIDE 0.9% 50 ML IV PRN (11:44)
[2020-08-28] MEDS ORDERED: KETOROLAC 30 MG/ML VIAL IV PRN (11:44)
[2020-08-28] MEDS ORDERED: diphenhydrAMINE 50 MG/ML VIAL IV PRN (11:44)
[2020-08-28] MEDS: oxyCODONE/ACETAMINOPHEN 5mg/325mg TAB PO PRN ×3 (15:33→21:15)
[2020-08-28] MEDS ORDERED: bisacodyL 5 MG TABEC PO SCH (20:00)
[2020-08-28] MEDS: IBUPROFEN 600 MG TAB PO PRN (21:14)
--- NOTE | 2020-08-29 06:20 | Obstetrical Progress Note ---
Date of Service <Celio Donnelly MD - Last Filed: 08/29/20 07:15> August 29, 2020 Assessment & Plan <Celio Donnelly MD - Last Filed: 08/29/20 07:15> (1) : - PNL: Rh neg (received Rhogam), RI, GBS neg, COVID neg - Feels well today. Eating well, voiding well, ambulating well - Pain well controlled with ibuprofen 600mg Q4H PRN - Routine postoperative care -- OOB, ambulation, diet progression as tolerated - After discharge will have 6 week follow-up with Dr. Aguirre Day #:: 2 Subjective <Celio Donnelly MD - Last Filed: 08/29/20 07:15> Vamsi is a 25 y/o female who is POD #2 following elective repeat delivery at 39+ weeks. She reports feeling well overall this morning. Light abdominal cramping and 7/10 pain well managed on analgesics. Voiding well. Tolerating meals overnight without difficulty. Patient has been able to ambulate some. Is passing gas and had bowel movement. Has persistent lochia with some improvement this morning. Currently . Review of Systems Denies fever or chills. Denies shortness of breath or cough. Denies chest pain. Denies breast pain. Denies dysuria. Denies leg pain or leg swelling. Denies headache or changes in vision. Physical Exam <Celio Donnelly MD - Last Filed: 08/29/20 07:15> General: Alert, oriented. No acute distress. Cardiac: Regular rate and rhythm. No murmurs. Respiratory: Clear to auscultation bilaterally a/p, no wheezes/rales/rhonchi. No increased work of breathing. Symmetrical chest rise. No respiratory distress. Abdomen: Soft, nontender, nondistended. Bowel sounds present. Uterus: Uterine fundus firm, palpable 2 cm below umbilicus. Surgical scar clean and healing well. Lower Extremities: No lower extremity edema or swelling. No deep calf pain. Gela's negative bilaterally. Results & Data ([facility]) <Celio Donnelly MD - Last Filed: 08/29/20 07:15> Vital Signs (Past 12 Hours) Vital Signs Temp Pulse Resp BP Pulse Ox 08/29/20 00:00 36.6 C 89 16 109/65 99 <Tod Richard MD - Last Filed: 08/29/20 08:42> Co-Signing Physician Notes Patient evaluated and agree with the above findings and plan. Routine care Resident Activity Tracking <Celio Donnelly MD - Last Filed: 08/29/20 07:15> Resident Involvement: Resident Care Provided Care Provided: OB Delivery
[2020-08-29] MEDS: IBUPROFEN 600 MG TAB PO PRN ×2 (06:50→15:32)
[2020-08-29] MEDS: oxyCODONE/ACETAMINOPHEN 5mg/325mg TAB PO PRN ×2 (06:50→15:32)
[2020-08-29 06:55] LABS: Hematocrit (blood only) 31.2 % (37-47)
[2020-08-29] MEDS: FERROUS SULFATE 325 MG TAB PO SCH (08:42)
[2020-08-29] MEDS: SIMETHICONE 80 MG CHEW PO SCH ×3 (08:42→16:26)
[2020-08-29] MEDS: PRENATAL VITAMIN 1 TAB PO SCH (08:42)
[2020-08-29] MEDS: DOCUSATE SODIUM 100 MG CAP PO SCH (08:42)
[2020-08-29] MEDS ORDERED: bisacodyL 10 MG SUPP PR PRN (11:06)
[2020-08-29 19:24] VITALS: BP 130/80; PULSE 94; TEMP 98.2; O2SAT 99
--- NOTE | 2020-08-31 21:47 | Discharge Summary ---
Date of Service August 31, 2020 Admission HPI Per Admitting Provider 25yo with EDC 08/29/2020. complicated by: History of section - Desires repeat C/S SCHEDULED FOR 08/[address] AGUIRRE Recurrent uti, twice so far this , ecoli History of preeclampsia - baseline labs, ASA at 12w - protein 156mg, serum labs WNL. Need for Rhogam due to RH negative mother Need for Rubella Rhogam given 06/08/20 UTI- bring in for straight cath 1 wk after Macrobid- Starting on 05/24/20 WILL BE STRAIGHT CATHED AT 06/08 appt on Macrobid suppression therapy Flu shot given 07/20/2020 SB Admission Exam (Per Admitting) Constitutional WD/WN, vitals as above Respiratory normal respiratory effort, lungs clear to auscultation no respiratory distress Cardiovascular Rate/Rhythm: regular rate and regular rhythm Gastrointestinal (Abdomen) Inspection/Auscultation: abdomen normal to inspection Percussion/Palpation: abdomen soft; abdomen nontender Skin no rashes, warm and dry Psychiatric A+Ox3, euthymic affect Discharge Data Consultations 08/27/20 08:48 Consult Anesthesiology Stat Procedures Performed Operation Date: 08/27/20 08:50 Actual Procedures p Section in - Claire Aguirre, Hospital Course (1) Previous delivery affecting , antepartum: Admitted for routine recovery after repeat . DC home POD#2. Course unremarkable. DC home 08/29/20. Coding Level of Care Code None Diagnoses Previous delivery affecting , antepartum O34.219
== END 2020-08-29 17:47 | disposition home or self-care (01) | DRG 788 ==
LOC: 4S1 07:14 → EDSTATUS 10:10 → 4S2 15:05